=== PATIENT | female | born 1960 | race Hispanic/Latino ===

== ENCOUNTER 2017-03-24 15:25 | Emergency (ER) | payer MEDICAID, OTHER ==
[2017-03-24 15:25] VITALS: BMI 36.2
[2017-03-24 15:44] VITALS: TEMP 98.5
[2017-03-24] MEDS ORDERED: Sodium Chloride 0.9% 1,000 ML IV STA (15:55)
--- NOTE | 2017-03-24 16:04 | ED PDOC ---
Arrival/HPI - General Chief Complaint: GI Problem Time Seen by Provider: 03/24/17 15:45 Historian: Patient - History of Present Illness Narrative History of Present Illness (Text): 03/24/17 15:58 57yo morbidly obese female with PMHx of hypertension who present with complaint of multiple episode of vomiting and diarrhea x 3days. +Abdominal soreness. States she saw her PMD on and placed her on Flagyl. States she is unable to keep anything down. States she started having generalized crampy body pain today. spoke with her PMD and was referred to ED for possible dehydration. Denies fever, chills, melena, hematochezia, chest pain, SOB, recent travel, sick contact, any other complaint. Past Medical History - Provider Review Nursing Documentation Reviewed: Yes - Infectious Disease Hx of Infectious Diseases: None - Cardiac Hx Hypertension: Yes - Pulmonary Hx Pneumonia: Yes - Neurological Hx Migraine: Yes Hx Transient Ischemic Attacks (TIA): Yes - HEENT Hx HEENT Disorder: Yes Hx Blind: No Hx Cataracts: No Hx Deafness: No Hx Difficulty Chewing: No Hx Epistaxis: No Hx Glaucoma: No Hx Macular Degeneration: No Other/Comment: Wear glasses - Renal Hx Renal Disorder: No Hx Dialysis: No Hx Kidney Stones: No Hx Neurogenic Bladder: No Hx Pyelonephritis: No Hx Renal Cancer: No Hx Renal Failure: No - Endocrine/Metabolic Hx Endocrine Disorders: No Hx Adrenal Cancer: No Hx Diabetes Insipidus: No Hx Diabetes Mellitus Type 1: No Hx Diabetes Mellitus Type 2: No Hx Hyperthyroidism: No Hx Hypothyroidism: No Hx Systemic Lupus Erythematosus: No - Hematological/Oncological Hx Blood Disorders: No Hx AIDS: No Hx Anemia: No Hx Cancer: No Hx Chemotherapy: No Hx Cirrhosis: No Hx Hemophilia: No Hx Hepatitis A: No Hx Hepatitis B: No Hx Hepatitis C: No Hx Metastasis: No Hx Shingles: No Hx Sickle Cell Disease: No Hx Unexplained Bleeding: No - Integumentary Hx Dermatological Disorder: Yes Hx Basal Cell Carcinoma: No Hx Eczema: No Hx Melanoma: No Hx Psoriasis: No Hx Squamous Cell Carcinoma: No Other/Comment: Loss of pigmentation - Musculoskeletal/Rheumatological Hx Arthritis: Yes - Gastrointestinal Hx Gastrointestinal Disorders: Yes Hx Colostomy: No Hx Crohn's Disease: No Hx Diverticulitis: No Hx Gall Bladder Disease: No Hx Gastroesophageal Reflux: Yes Hx Gastrointestinal Ulcer: No Hx Ileostomy: No Hx Liver Failure: No Hx Pancreatitis: No HX Swallowing Problems: No - Genitourinary/Gynecological Hx Genitourinary Disorders: No Hx Hematuria: No Hx Incontinence: No Hx Prostate Problems: No Hx Sexually Transmitted Diseases: No Hx Urinary Tract Infection: Yes - Psychiatric Hx Anxiety: Yes Hx Substance Use: No - Surgical History Hx Appendectomy: Yes Hx Cholecystectomy: Yes - Anesthesia Hx Anesthesia: Yes - Suicidal Assessment Feels Threatened In Home Enviroment: No Family/Social History - Physician Review Nursing Documentation Reviewed: Yes Family/Social History: Unknown Family HX Smoking Status: Heavy Smoker > 10 Cigarettes Daily Hx Alcohol Use: No Hx Substance Use: No Allergies/Home Meds Allergies/Adverse Reactions: Allergies codeine Allergy (Intermediate, Verified 03/24/17 15:31) DIARRHEA SWEATS Penicillins Allergy (Mild, Verified 03/24/17 15:31) VOMITING DIARRHEA Home Medications: Home Meds Medication Instructions Recorded Confirmed Aspirin [Aspir 81] 81 mg PO DAILY 03/17/13 03/24/17 Metoprolol Tartrate 25 mg PO BID 11/16/15 03/24/17 Mirtazapine 15 mg PO DAILY 11/16/15 07/22/16 Lisinopril/Hydrochlorothiazide 1 tab PO DAILY 07/22/16 03/24/17 [Lisinopril-Hydrochlorothiazide 25 mg-20 mg] Ranitidine HCl 300 mg PO DAILY 07/22/16 03/24/17 Clorazepate Dipotassium [Tranxene 7.5 mg PO PRN PRN 03/24/17 03/24/17 T-Tab] Methimazole [Tapazole] 5 mg PO DAILY 03/24/17 03/24/17 Montelukast Sodium [Singulair] 5 mg PO HS 03/24/17 03/24/17 metroNIDAZOLE [Flagyl] 500 mg PO TID 03/24/17 03/24/17 Review of Systems - Physician Review All systems were reviewed & negative as marked: Yes - Review of Systems Constitutional: Normal Eyes: Normal ENT: Normal Respiratory: Normal Cardiovascular: Normal Gastrointestinal: Abdominal Pain, Diarrhea, Nausea, Vomiting, Hematemesis. absent: Constipation, Hematochezia Genitourinary Female: Normal Musculoskeletal: Normal Skin: Normal Neurological: Normal Endocrine: Normal Hemo/Lymphatic: Normal Psychiatric: Normal Physical Exam Vital Signs Reviewed: Yes Vital Signs Temp Pulse Resp BP Pulse Ox 03/24/17 17:37 76 18 93/59 L 98 03/24/17 15:41 98.5 F 80 16 90/62 L 95 Temperature: Afebrile Blood Pressure: Normal Pulse: Regular Respiratory Rate: Normal Appearance: Positive for: Well-Appearing, Non-Toxic, Comfortable Pain Distress: None Mental Status: Positive for: Alert and Oriented X 3 - Systems Exam Head: Present: Atraumatic, Normocephalic Pupils: Present: PERRL Extroacular Muscles: Present: EOMI Conjunctiva: Present: Normal Mouth: Present: Moist Mucous Membranes Neck: Present: Normal Range of Motion Respiratory/Chest: Present: Clear to Auscultation, Good Air Exchange. No: Respiratory Distress, Accessory Muscle Use Cardiovascular: Present: Regular Rate and Rhythm, Normal S1, S2. No: Murmurs Abdomen: Present: Normal Bowel Sounds, Other (Soft). No: Tenderness, Distention , Peritoneal Signs, Rebound, Guarding, McBurney's Point Tender, Rovsing's Sign Present Back: Present: Normal Inspection Upper Extremity: Present: Normal Inspection. No: Cyanosis, Edema Lower Extremity: Present: Normal Inspection. No: Edema Neurological: Present: GCS=15, CN II-XII Intact, Speech Normal Skin: Present: Warm, Dry, Normal Color. No: Rashes Psychiatric: Present: Alert, Oriented x 3, Normal Insight, Normal Concentration Medical Decision Making ED Course and Treatment: 03/24/17 17:43 PT presented to ED for stated history. Her BP was 93/59 in ED. On further questioning, pt states her BP has been low the last 2 visit to her PMD last month and this month. states She was recently told to DC one of her BP medication secondary to her reduced BP. States she took her BP medication today. She doesn't check her BP at home. she was advised to check her BP every morning before taking her medication. She was otherwise hemodynmaically stable. Comfortable in no distress in ED. Her lab was reviewed. Pt have UTI and was treated and DC home with Cipro. Result was DW the pt. she was advised to follow BLAND diet and increase her fluid intake. She did not have diarrhea and vomiting in ED. She was able to tolerate PO fluid in ED. She was DC with antiemetic. Referred to her PMD. TRT ED for any new or worsening symptoms. - Lab Interpretations Lab Results: 03/24/17 16:45 03/24/17 16:45 Lab Results 03/24/17 16:45: Sodium 140, Potassium 4.1, Chloride 103, Carbon Dioxide 26, Anion Gap 15, BUN 19, Creatinine 1.0, Est GFR ( Amer) > 60, Est GFR (Non- Af Amer) 58, Random Glucose 86, Calcium 10.3, Total Bilirubin 0.4, AST 22, ALT 25, Alkaline Phosphatase 106, Total Protein 8.1, Albumin 4.6, Globulin 3.5, Albumin/Globulin Ratio 1.3, Lipase 69 03/24/17 16:45: WBC 10.5 D, RBC 4.69, Hgb 14.0, Hct 41.0, MCV 87.4, MCH 29.9, MCHC 34.1, RDW 15.1 H, Plt Count 289, MPV 10.7, Gran % 53.8, Lymph % (Auto) 36.0 H, [place] % (Auto) 8.3 H, Eos % (Auto) 1.3 L, Baso % (Auto) 0.6, Gran # 5.63 , Lymph # 3.8 H, [place] # 0.9 H, Eos # 0.1, Baso # 0.06 03/24/17 16:00: Urine Color Yellow, Urine Appearance Clear, Urine pH 5.5, Ur Specific [place] >= 1.030, Urine Protein Trace H, Urine Glucose (UA) Negative, Urine Ketones Trace H, Urine Blood Negative, Urine Nitrate Negative, Urine Bilirubin Negative, Urine Urobilinogen 0.2, Ur Leukocyte Esterase Moderate H, Urine RBC 0 - 2, Urine WBC 15 - 20, Ur Epithelial Cells 6 - 8, Amorphous Sediment Few, Urine Bacteria Many, Urine Other Uyeast - Medication Orders Current Medication Orders: Discontinued Medications Ciprofloxacin (Cipro) 500 mg PO ONCE STA PRN Reason: Protocol Stop: 03/24/17 17:02 Last Admin: 03/24/17 17:29 Dose: 500 mg Famotidine (Pepcid) 20 mg IVP STAT STA Stop: 03/24/17 15:56 Last Admin: 03/24/17 16:46 Dose: 20 mg Sodium Chloride (Sodium Chloride 0.9%) 1,000 mls @ 1,000 mls/hr IV .Q1H STA Stop: 03/24/17 16:54 Last Admin: 03/24/17 16:45 Dose: 1,000 mls/hr Ondansetron HCl (Zofran Inj) 4 mg IVP STAT STA Stop: 03/24/17 16:05 Last Admin: 03/24/17 16:46 Dose: 4 mg Disposition/Present on Arrival - Present on Arrival Any Indicators Present on Arrival: No History of DVT/PE: No History of Uncontrolled Diabetes: No Urinary Catheter: No History of Decub. Ulcer: No History Surgical Site Infection Following: None - Disposition Have Diagnosis and Disposition been Completed?: Yes Diagnosis: UTI (urinary tract infection), Vomiting and diarrhea Disposition: HOME/ ROUTINE Disposition Time: 17:30 Patient Plan: Discharge Patient Problems: Current Active Problems Problem Status Onset UTI (urinary tract infection) Acute Vomiting and diarrhea Acute Condition: STABLE Discharge Instructions (ExitCare): Urinary Tract Infection in Women (ED), Acute Nausea and Vomiting (ED) Additional Instructions: Follow BLAND diet for 24hrs Follow up with your Doctor Return to ED for any new or worsening symptoms Prescriptions: Ciprofloxacin [Cipro] 500 mg PO BID #14 tab Ondansetron ODT [Zofran ODT] 4 mg PO Q6 #7 odt Referrals: Shailesh Lozada MD [Primary Care Provider] - Follow up with primary
[2017-03-24 16:41] LABS: PH,URINE 5.5 (4.7-8.0); URINE BILIRUBIN NEGATIVE (NEGATIVE); URINE BLOOD NEGATIVE (NEGATIVE); URINE GLUCOSE (UA) NEGATIVE (NEGATIVE); URINE KETONE TRACE mg/dL (NEGATIVE); URINE LEUKOCYTE ESTERASE MODERATE Leu/uL (NEGATIVE); URINE PROTEIN TRACE mg/dL (<30 mg/dL); URINE UROBILINOGEN 0.2 E.U./dL (<1 E.U./dL)
[2017-03-24 16:46] LABS: URINE APPEARANCE CLEAR (CLEAR); URINE COLOR YELLOW (YELLOW)
[2017-03-24 16:54] LABS: ADD MANUAL DIFF? NO
[2017-03-24 16:57] LABS: BASO # 0.06 K/mm3 (0.0-2.0); BASO % 0.6 % (0.0-3.0); EOS # 0.1 (0.0-0.7); EOS % 1.3 % (1.5-5.0); GRAN # 5.63 (1.4-6.5); GRAN % 53.8 % (50.0-68.0); LYMPH # 3.8 (1.2-3.4); MEAN CELL VOLUME 87.4 fL (80.0-105.0); MEAN CORPUSCULAR HEMOGLOBIN 29.9 pg (25.0-35.0); MEAN CORPUSCULAR HGB CONC 34.1 g/dl (31.0-37.0); MEAN PLATELET VOLUME 10.7 fl (7.0-11.0); MONO # 0.9 (0.1-0.6); MONO % 8.3 % (1.0-6.0); PLATELET COUNT 289 10^3/uL (120.0-450.0); RED CELL DISTRIBUTION WIDTH 15.1 % (11.5-14.5); WHITE BLOOD COUNT 10.5 10^3/ul (4.5-11.0)
[2017-03-24 16:59] LABS: URINE AMORPHOUS SEDIMENT FEW; URINE BACTERIA MANY (NEG); URINE RBC 0 - 2 /hpf (0-2); URINE WBC 15 - 20 /hpf (0-6)
[2017-03-24 17:08] LABS: ALB/GLOB RATIO 1.3 (1.1-1.8); ALKALINE PHOSPHATASE 106 U/L (38-133); ALT/SGPT 25 U/L (7-56); AST/SGOT 22 U/L (15-39); BILIRUBIN,TOTAL 0.4 mg/dL (0.2-1.3); BLOOD UREA NITROGEN 19 mg/dL (7-21); CALCIUM 10.3 mg/dL (8.4-10.5); CARBON DIOXIDE 26 mmol/L (21-33); CHLORIDE 103 mmol/L (98-107); GFR AFRICAN-AMERICAN > 60; GLUCOSE,RANDOM 86 mg/dL (70-110); LIPASE 69 U/L (23-300); POTASSIUM 4.1 mmol/L (3.6-5.0); SODIUM 140 mmol/L (132-148); TOTAL PROTEIN 8.1 g/dL (5.8-8.3)
[2017-03-24 17:10] LABS: INR 1.04 (0.93-1.08); PARTIAL THROMBOPLASTIN TIME 31.5 Seconds (23.7-30.8)
[2017-03-24 17:37] VITALS: BP 93/59; PULSE 76; RESP 18; O2SAT 98
== END 2017-03-24 17:58 | disposition home or self-care (01) ==
LOC: ED 15:25
DX: N39.0 Urinary tract infection, site not specified (principal); R11.10 Vomiting, unspecified; R19.7 Diarrhea, unspecified
CPT/HCPCS: 80053; 81001; 83690; 85025; 85610; 85730; 87086; 96361; 96374; 96375; 99283; J2405; J7040

== ENCOUNTER 2017-06-07 18:28 | Observation (INO) | payer MEDICAID ==
[2017-06-07 18:32] VITALS: BMI 35.9
--- NOTE | 2017-06-07 18:36 | ED PDOC ---
Arrival/HPI - General Time Seen by Provider: 06/07/17 18:29 Historian: Patient - History of Present Illness Narrative History of Present Illness (Text): 06/07/17 18:41 A 57 year old female whose past medical history includes, hypertension, presents to the emergency department with 1 hour duration chest pain and subjective dyspnea. The patient denies fevers, chills, nausea, vomiting, diarrhea, dizziness, abdominal pain or any other complaint. Time/Duration: 1 hour Symptom Onset: Sudden Symptom Course: Unchanged Activities at Onset: Rest, Light Context: Home Past Medical History - Provider Review Nursing Documentation Reviewed: Yes - Infectious Disease Hx of Infectious Diseases: None - Cardiac Hx Hypertension: Yes - Pulmonary Hx Pneumonia: Yes - Neurological Hx Migraine: Yes Hx Transient Ischemic Attacks (TIA): Yes - HEENT Hx HEENT Disorder: Yes Hx Blind: No Hx Cataracts: No Hx Deafness: No Hx Difficulty Chewing: No Hx Epistaxis: No Hx Glaucoma: No Hx Macular Degeneration: No Other/Comment: Wear glasses - Renal Hx Renal Disorder: No Hx Dialysis: No Hx Kidney Stones: No Hx Neurogenic Bladder: No Hx Pyelonephritis: No Hx Renal Cancer: No Hx Renal Failure: No - Endocrine/Metabolic Hx Endocrine Disorders: No Hx Adrenal Cancer: No Hx Diabetes Insipidus: No Hx Diabetes Mellitus Type 1: No Hx Diabetes Mellitus Type 2: No Hx Hyperthyroidism: No Hx Hypothyroidism: No Hx Systemic Lupus Erythematosus: No - Hematological/Oncological Hx Blood Disorders: No Hx AIDS: No Hx Anemia: No Hx Cancer: No Hx Chemotherapy: No Hx Cirrhosis: No Hx Hemophilia: No Hx Hepatitis A: No Hx Hepatitis B: No Hx Hepatitis C: No Hx Metastasis: No Hx Shingles: No Hx Sickle Cell Disease: No Hx Unexplained Bleeding: No - Integumentary Hx Dermatological Disorder: Yes Hx Basal Cell Carcinoma: No Hx Eczema: No Hx Melanoma: No Hx Psoriasis: No Hx Squamous Cell Carcinoma: No Other/Comment: Loss of pigmentation - Musculoskeletal/Rheumatological Hx Arthritis: Yes - Gastrointestinal Hx Gastrointestinal Disorders: Yes Hx Colostomy: No Hx Crohn's Disease: No Hx Diverticulitis: No Hx Gall Bladder Disease: No Hx Gastroesophageal Reflux: Yes Hx Gastrointestinal Ulcer: No Hx Ileostomy: No Hx Liver Failure: No Hx Pancreatitis: No HX Swallowing Problems: No - Genitourinary/Gynecological Hx Genitourinary Disorders: No Hx Hematuria: No Hx Incontinence: No Hx Prostate Problems: No Hx Sexually Transmitted Diseases: No Hx Urinary Tract Infection: Yes - Psychiatric Hx Anxiety: Yes Hx Substance Use: No - Surgical History Hx Appendectomy: Yes Hx Cholecystectomy: Yes - Anesthesia Hx Anesthesia: Yes - Suicidal Assessment Feels Threatened In Home Enviroment: No Family/Social History - Physician Review Nursing Documentation Reviewed: Yes Family/Social History: No Known Family HX Smoking Status: Heavy Smoker > 10 Cigarettes Daily Hx Alcohol Use: No Hx Substance Use: No Allergies/Home Meds Allergies/Adverse Reactions: Allergies codeine Allergy (Intermediate, Verified 06/07/17 18:38) DIARRHEA SWEATS Penicillins Allergy (Mild, Verified 06/07/17 18:38) VOMITING DIARRHEA Home Medications: Home Meds Medication Instructions Recorded Confirmed Aspirin [Aspir 81] 81 mg PO DAILY 03/17/13 06/07/17 Metoprolol Tartrate 25 mg PO BID 11/16/15 06/07/17 Mirtazapine 15 mg PO DAILY 11/16/15 06/07/17 Lisinopril/Hydrochlorothiazide 1 tab PO DAILY 07/22/16 06/07/17 [Lisinopril-Hydrochlorothiazide 25 mg-20 mg] Ranitidine HCl 300 mg PO DAILY 07/22/16 06/07/17 Clorazepate Dipotassium [Tranxene 7.5 mg PO PRN PRN 03/24/17 06/07/17 T-Tab] Methimazole [Tapazole] 5 mg PO DAILY 03/24/17 06/07/17 Montelukast Sodium [Singulair] 5 mg PO HS 03/24/17 06/07/17 Review of Systems - Physician Review All systems were reviewed & negative as marked: Yes - Review of Systems Constitutional: absent: Fevers, Night Sweats Respiratory: SOB Cardiovascular: Chest Pain Gastrointestinal: absent: Abdominal Pain, Diarrhea, Nausea, Vomiting Neurological: absent: Headache, Dizziness Physical Exam Vital Signs Reviewed: Yes Vital Signs Temp Pulse Resp BP Pulse Ox 06/07/17 22:05 83 19 125/71 95 06/07/17 18:36 97.7 F 95 H 20 146/80 97 Temperature: Afebrile Blood Pressure: Normal Pulse: Tachycardic Respiratory Rate: Normal Appearance: Positive for: Well-Appearing, Non-Toxic, Comfortable, Other ( Morbidly Obese) Pain Distress: None - Systems Exam Head: Present: Atraumatic, Normocephalic Pupils: Present: PERRL Extroacular Muscles: Present: EOMI Conjunctiva: Present: Normal Mouth: Present: Moist Mucous Membranes Neck: Present: Normal Range of Motion Respiratory/Chest: Present: Clear to Auscultation, Good Air Exchange. No: Respiratory Distress, Accessory Muscle Use Cardiovascular: Present: Regular Rate and Rhythm, Normal S1, S2. No: Murmurs Abdomen: Present: Normal Bowel Sounds. No: Tenderness, Distention, Peritoneal Signs Back: Present: Normal Inspection Upper Extremity: Present: Normal Inspection. No: Cyanosis, Edema Lower Extremity: Present: Normal Inspection. No: Edema Neurological: Present: GCS=15, CN II-XII Intact, Speech Normal Skin: Present: Warm, Dry, Normal Color. No: Rashes Psychiatric: Present: Alert, Oriented x 3, Normal Insight, Normal Concentration Medical Decision Making ED Course and Treatment: 06/07/17 18:53 Impression: A 57 year old female with 1 hour duration chest pain. Differential Diagnosis included but are not limited to: cp r/o acs Plan: -- EKG -- Chest X-ray -- Labs -- Aspirin and Nitrostat -- Urinalysis -- Reassess and disposition Progress Notes: 06/07/17 18:35 EKG: Ordered, reviewed, and independently interpreted the EKG. Rate : 95 BPM Rhythm : NSR Interpretation : No ST/ T-wave changes. 06/07/17 21:04 EKG: Ordered, reviewed, and independently interpreted the EKG. Rate : 82 BPM Rhythm : NSR Interpretation : No interval changes. 06/07/17 23:01 pt started c/o of pain to back. dissection study added. neg. pain imrpoved s/p morphine. serial ekg show no dyamic change. asa given. dr villa accepts - Lab Interpretations Lab Results: 06/07/17 18:34 06/07/17 19:45 Lab Results 06/07/17 19:45: Lipase 112 06/07/17 19:45: Sodium 138, Potassium 3.5 L, Chloride 101, Carbon Dioxide 23, Anion Gap 18, BUN 16, Creatinine 0.7, Est GFR ( Amer) > 60, Est GFR (Non- Af Amer) > 60, Random Glucose 115 H, Calcium 10.2, Magnesium 1.5 L, Total Bilirubin 0.5, AST 24, ALT 19, Alkaline Phosphatase 125, Lactate Dehydrogenase 373, Total Creatine Kinase 41, Troponin I < 0.01, Total Protein 8.5 H, Albumin 5.0 H, Globulin 3.5, Albumin/Globulin Ratio 1.4 06/07/17 19:41: Urine Color Yellow, Urine Appearance Clear, Urine pH 5.5, Ur Specific [place] >= 1.030, Urine Protein Negative, Urine Glucose (UA) Negative, Urine Ketones Negative, Urine Blood Negative, Urine Nitrate Negative, Urine Bilirubin Negative, Urine Urobilinogen 0.2, Ur Leukocyte Esterase Small H, Urine RBC 0 - 2, Urine WBC 2 - 5, Ur Epithelial Cells 3 - 4, Urine Bacteria Mod 06/07/17 18:34: ESR 18 06/07/17 18:34: PT 11.0, INR 1.02, APTT 31.5 H 06/07/17 18:34: WBC 16.7 H D, RBC 5.29, Hgb 16.0, Hct 46.6, MCV 88.1, MCH 30.2, MCHC 34.3, RDW 13.5, Plt Count 303, MPV 11.2 H, Gran % 50.0, Lymph % (Auto) 41.7 H, [place] % (Auto) 6.2 H, Eos % (Auto) 1.9, Baso % (Auto) 0.2, Gran # 8.36 H , Lymph # 7.0 H, [place] # 1.0 H, Eos # 0.3, Baso # 0.04 I have reviewed the lab results: Yes - RAD Interpretation Radiology Orders: 06/07/17 18:38 CHEST PORTABLE [RAD] Stat 06/07/17 20:47 ANGIOGRAPHY DISECTION PROTOCOL [CT] Stat - EKG Interpretation Interpreted by ED Physician: Yes Type: 12 lead EKG - Medication Orders Current Medication Orders: Aspirin (Ecotrin) 81 mg PO DAILY [facility] Magnesium Chloride (Slow-Mag) 64 mg PO DAILY [facility] Last Admin: 06/08/17 09:15 Dose: 64 mg Methimazole (Tapazole) 5 mg PO DAILY [facility] Last Admin: 06/08/17 09:16 Dose: 5 mg Metoprolol Tartrate (Lopressor) 25 mg PO BID [facility] Last Admin: 06/08/17 17:47 Dose: 25 mg Oxycodone/Acetaminophen (Percocet 5/325 Mg Tab) 1 tab PO Q4 PRN PRN Reason: Pain, severe (8-10) Stop: 06/11/17 00:01 Last Admin: 06/08/17 20:32 Dose: 1 tab Potassium Chloride (K-Dur 20 Meq Er Tab) 20 meq PO DAILY [facility] Last Admin: 06/08/17 12:14 Dose: 20 meq Comments: given earlier at 1:11 Discontinued Medications Aspirin (Aspirin) 325 mg PO STAT STA Stop: 06/07/17 18:40 Last Admin: 06/07/17 18:48 Dose: 325 mg Aspirin (Ecotrin) 325 mg PO DAILY [facility] Last Admin: 06/08/17 09:15 Dose: 325 mg Bacitracin (Bacitracin) 1 ea TOP ONCE ONE Stop: 06/08/17 16:46 Last Admin: 06/08/17 19:09 Dose: 1 ea Clopidogrel Bisulfate (Plavix) 300 mg PO STAT STA Stop: 06/08/17 08:49 Last Admin: 06/08/17 09:15 Dose: 300 mg Clopidogrel Bisulfate (Plavix) 300 mg PO STAT STA Stop: 06/08/17 11:49 Last Admin: 06/08/17 12:16 Dose: 300 mg Fentanyl (Fentanyl) Confirm Administered Dose 100 mcg .ROUTE .STK-MED ONE Stop: 06/08/17 14:42 Last Admin: 06/08/17 16:08 Dose: 100 mcg Comments: Dr. Arturo Wright adm. Fentanyl 50 mcg IV @ 1608, an additional dose of Fentanyl 50 mcg IV was given @ 1618. Fentanyl (Fentanyl) Confirm Administered Dose 100 mcg .ROUTE .STK-MED ONE Stop: 06/08/17 15:57 Last Admin: 06/08/17 16:30 Dose: 50 mcg Heparin Sodium (Porcine) (Heparin) Confirm Administered Dose 10,000 units .ROUTE .STK-MED ONE Stop: 06/08/17 14:41 Last Admin: 06/08/17 16:21 Dose: 2,500 units Comments: Dr. Arturo Wright adm. Heparin 2500 Units IA @ 1621 Magnesium Sulfate 2 gm/ Sodium (Chloride) 104 mls @ 102 mls/hr IVPB ONCE ONE Stop: 06/08/17 12:48 Last Admin: 06/08/17 13:09 Dose: 102 mls/hr Sodium Chloride (Sodium Chloride 0.9%) 1,000 mls @ 50 mls/hr IV .Q20H [facility] Last Admin: 06/08/17 12:17 Dose: 50 mls/hr Heparin Sodium (Porcine) (Heparin 1000 Units/500 Ml Ns) Confirm Administered Dose 1,500 mls @ ud IV .STK-MED ONE Stop: 06/08/17 14:42 Last Admin: 06/08/17 17:29 Dose: Not Given Non-Admin Reason: Patient in Cardiology Sodium Chloride (Sodium Chloride 0.9%) 1,000 mls @ 100 mls/hr IV .Q10H [facility] Stop: 06/08/17 21:30 Last Admin: 06/08/17 17:14 Dose: 100 mls/hr Iodixanol (Visipaque 320 Mg/Ml 100 Ml) Confirm Administered Dose 100 ml IV .STK- MED ONE Stop: 06/07/17 20:53 Iodixanol (Visipaque 320 Mg/Ml 200 Ml) Confirm Administered Dose 200 ml IV .STK- MED ONE Stop: 06/08/17 14:42 Last Admin: 06/08/17 17:30 Dose: Not Given Non-Admin Reason: Patient in Cardiology Lidocaine HCl (Lidocaine 2% 20ml Vial) Confirm Administered Dose 20 ml .ROUTE .STK-MED ONE Stop: 06/08/17 16:07 Last Admin: 06/08/17 17:29 Dose: Not Given Non-Admin Reason: Patient in Cardiology Midazolam HCl (Versed Inj) Confirm Administered Dose 2 mg .ROUTE .STK-MED ONE Stop: 06/08/17 14:41 Last Admin: 06/08/17 16:08 Dose: 2 mg Comments: Dr. Arturo Wright adm. Versed 2 mg IV @ 1608 Midazolam HCl (Versed Inj) Confirm Administered Dose 2 mg .ROUTE .STK-MED ONE Stop: 06/08/17 16:15 Last Admin: 06/08/17 16:30 Dose: 1 mg Morphine Sulfate (Morphine) 4 mg IVP STAT STA Stop: 06/07/17 19:27 Last Admin: 06/07/17 19:40 Dose: 4 mg Morphine Sulfate (Morphine) 4 mg IVP STAT STA Stop: 06/07/17 20:51 Last Admin: 06/07/17 21:06 Dose: 4 mg Morphine Sulfate (Morphine) 2 mg IVP STAT STA Stop: 06/08/17 11:46 Last Admin: 06/08/17 12:08 Dose: 2 mg Nitroglycerin (Nitrostat Sl Tab) 0.4 mg SL STAT STA Stop: 06/07/17 18:40 Last Admin: 06/07/17 18:49 Dose: 0.4 mg Ondansetron HCl (Zofran Inj) 4 mg IVP STAT STA Stop: 06/07/17 19:51 Last Admin: 06/07/17 20:37 Dose: 4 mg Verapamil HCl (Verapamil Inj) Confirm Administered Dose 5 mg IVP .STK-MED ONE Stop: 06/08/17 14:41 Last Admin: 06/08/17 16:21 Dose: 2.5 mg Comments: Dr. Arturo Wright adm. Verapamil 2.5 mg IA @ 1621 - Scribe Statement The provider has reviewed the documentation as recorded by the Scribe Martha Ayala Provider Scribe Attestation: All medical record entries made by the Scribe were at my direction and personally dictated by me. I have reviewed the chart and agree that the record accurately reflects my personal performance of the history, physical exam, medical decision making, and the department course for this patient. I have also personally directed, reviewed, and agree with the discharge instructions and disposition. Disposition/Present on Arrival - Present on Arrival Any Indicators Present on Arrival: No History of DVT/PE: No History of Uncontrolled Diabetes: No Urinary Catheter: No History Surgical Site Infection Following: None - Disposition Have Diagnosis and Disposition been Completed?: Yes Diagnosis: Chest pain Disposition: HOSPITALIZED Disposition Time: 11:00 Condition: STABLE
[2017-06-07 19:09] LABS: BASO # 0.04 K/mm3 (0.0-2.0); BASO % 0.2 % (0.0-3.0); EOS # 0.3 (0.0-0.7); EOS % 1.9 % (1.5-5.0); GRAN # 8.36 (1.4-6.5); LYMPH % 41.7 % (22.0-35.0); MEAN CELL VOLUME 88.1 fl (80.0-105.0); MEAN CORPUSCULAR HEMOGLOBIN 30.2 pg (25.0-35.0); MEAN CORPUSCULAR HGB CONC 34.3 g/dl (31.0-37.0); MEAN PLATELET VOLUME 11.2 fl (7.0-11.0); MONO % 6.2 % (1.0-6.0); PLATELET COUNT 303 10^3/uL (120.0-450.0); RBC 5.29 10^6/uL (3.5-6.1); RED CELL DISTRIBUTION WIDTH 13.5 % (11.5-14.5); WHITE BLOOD COUNT 16.7 10^3/ul (4.5-11.0)
[2017-06-07] MEDS ORDERED: Morphine 4 mg/ml ISec IVP STA ×2 (19:26→20:50)
[2017-06-07 19:33] LABS: INR 1.02 (0.93-1.08); PARTIAL THROMBOPLASTIN TIME 31.5 Seconds (23.7-30.8)
[2017-06-07 20:12] LABS: PH,URINE 5.5 (4.7-8.0); URINE BILIRUBIN NEGATIVE (NEGATIVE); URINE BLOOD NEGATIVE (NEGATIVE); URINE GLUCOSE (UA) NEGATIVE (NEGATIVE); URINE LEUKOCYTE ESTERASE SMALL Leu/uL (NEGATIVE); URINE NITRATE NEGATIVE (NEGATIVE); URINE PROTEIN NEGATIVE mg/dL (<30 mg/dL); URINE UROBILINOGEN 0.2 E.U./dL (<1 E.U./dL)
[2017-06-07 20:18] LABS: URINE APPEARANCE CLEAR (CLEAR); URINE COLOR YELLOW (YELLOW)
[2017-06-07 20:24] LABS: ALB/GLOB RATIO 1.4 (1.1-1.8); ALT/SGPT 19 U/L (7-56); AST/SGOT 24 U/L (15-39); BLOOD UREA NITROGEN 16 mg/dL (7-21); CALCIUM 10.2 mg/dL (8.4-10.5); GFR AFRICAN-AMERICAN > 60; GFR NON-AFRICAN AMERICAN > 60; MAGNESIUM 1.5 mg/dL (1.7-2.2)
[2017-06-07 20:37] LABS: URINE BACTERIA MOD (NEG); URINE RBC 0 - 2 /hpf (0-2)
[2017-06-07 20:40] LABS: TROPONIN I < 0.01 ng/mL
[2017-06-07] MEDS ORDERED: Iodixanol 320 MG/ML 100 ML BOTTLE IV ONE (20:52)
--- NOTE | 2017-06-07 22:34 | CT ---
EXAM: CT Chest With Intravenous Contrast CLINICAL HISTORY: 57 years old, female; Pain; Other: Chest; Chest pain; Type not specified; Additional info: Cp radiating to back TECHNIQUE: Axial computed tomography images of the chest with intravenous contrast during the arterial phase of enhancement. All CT scans at this facility use one or more dose reduction techniques, viz.: automated exposure control; ma/kV adjustment per patient size (including targeted exams where dose is matched to indication; i.e. head); or iterative reconstruction technique. CONTRAST: 100 mL of VISIPAQUE 320 administered intravenously. COMPARISON: No relevant prior studies available. FINDINGS: Pulmonary arteries: No pulmonary embolism. Aorta: No thoracic aortic aneurysm. No dissection. Aberrant right subclavian artery is identified, coursing obliquely and superiorly behind the trachea and esophagus. Lungs: No mass. No consolidation.Small bilateral pleural effusions, with adjacent compressive atelectasis, improved from 11/18/2015. Pleural spaces: As above. Heart: No cardiomegaly. No significant pericardial effusion. No evidence of right heart dysfunction. Bones: No acute fracture. Lymph nodes: No pathologically enlarged lymph nodes. Calcified subcentimeter left thyroid nodule. IMPRESSION: No pulmonary embolism. No dissection. EXAM: CT Abdomen and Pelvis With Intravenous Contrast CLINICAL HISTORY: 57 years old, female; Pain; Other: Chest; Chest pain; Type not specified; Additional info: Cp radiating to back TECHNIQUE: Axial computed tomography images of the abdomen and pelvis with intravenous contrast during the arterial phase of enhancement. All CT scans at this facility use one or more dose reduction techniques, viz.: automated exposure control; ma/kV adjustment per patient size (including targeted exams where dose is matched to indication; i.e. head); or iterative reconstruction technique. CONTRAST: 100 mL of VISIPAQUE 320 administered intravenously. COMPARISON: None FINDINGS: Lower thorax: No acute findings. VASCULATURE: Aorta: No acute findings. No abdominal aortic aneurysm. No dissection. Celiac trunk and mesenteric arteries: No acute findings. No occlusion or significant stenosis. Renal arteries: No acute findings. No occlusion or significant stenosis. Iliac arteries: No acute findings. No occlusion or significant stenosis. ABDOMEN: Liver: No acute findings. Gallbladder and bile ducts: The gallbladder is surgically absent. No significant intra- or extrahepatic biliary ductal dilation. Pancreas: Enhances homogeneously. No ductal dilation. No discrete mass. Spleen: No acute findings. Adrenals: No acute findings. Kidneys and ureters: No acute findings. No hydronephrosis or renal calculi. No discrete solid mass. PELVIS: Bladder: No acute findings. Reproductive: No acute findings. Appendix: The appendix is not definitively visualized, however no pericecal inflammatory changes identified to suggest the presence of acute appendicitis. ABDOMEN and PELVIS: Stomach and bowel: No obstruction. No mucosal thickening. Peritoneum: No significant fluid collection. No free air. Lymph nodes: No pathologically enlarged lymph nodes. Vasculature: Calcified atherosclerotic disease. Bones: No acute fracture. IMPRESSION: Unremarkable CT examination of the abdomen and pelvis. No aneurysmal dilatation or dissection is detected within the vasculature of the abdomen and pelvis.
[2017-06-08] MEDS: Oxycodone/Acetaminophen 5/325 mg Tab PO PRN ×3 (00:14→20:32)
[2017-06-08] MEDS: Potassium Chloride 20 mEq ER Tab PO SCH ×2 (01:11→12:14)
[2017-06-08 09:02] LABS: BASO # 0.05 K/mm3 (0.0-2.0); BASO % 0.4 % (0.0-3.0); EOS # 0.3 (0.0-0.7); EOS % 1.8 % (1.5-5.0); GRAN # 7.58 (1.4-6.5); GRAN % 54.7 % (50.0-68.0); LYMPH # 5.2 (1.2-3.4); LYMPH % 37.3 % (22.0-35.0); MEAN CELL VOLUME 88.1 fl (80.0-105.0); MEAN CORPUSCULAR HEMOGLOBIN 29.3 pg (25.0-35.0); MEAN CORPUSCULAR HGB CONC 33.3 g/dl (31.0-37.0); MONO # 0.8 (0.1-0.6); MONO % 5.8 % (1.0-6.0); PLATELET COUNT 249 10^3/uL (120.0-450.0); RBC 4.64 10^6/uL (3.5-6.1); RED CELL DISTRIBUTION WIDTH 13.5 % (11.5-14.5); WHITE BLOOD COUNT 13.9 10^3/ul (4.5-11.0)
[2017-06-08 09:07] LABS: HEMOGLOBIN 13.6 g/dL (12.0-16.0)
[2017-06-08] MEDS: methIMAzole 5 MG TAB PO SCH (09:16)
[2017-06-08 09:57] LABS: ALB/GLOB RATIO 1.5 (1.1-1.8); ALBUMIN 4.3 g/dL (3.0-4.8); ALT/SGPT 22 U/L (7-56); AST/SGOT 23 U/L (15-39); BLOOD UREA NITROGEN 16 mg/dL (7-21); CALCIUM 9.9 mg/dL (8.4-10.5); GFR AFRICAN-AMERICAN > 60; GFR NON-AFRICAN AMERICAN > 60; HDL CHOLESTEROL 42 mg/dL (29-60); MAGNESIUM 1.5 mg/dL (1.7-2.2)
[2017-06-08] MEDS ORDERED: Aspirin 325 mg EC Tablets PO SCH (10:00)
[2017-06-08] MEDS ORDERED: Magnesium Chloride 64 mg ER Tab PO SCH (10:00)
[2017-06-08 10:08] LABS: LDL CHOLESTEROL 195 mg/dL (0-129)
--- NOTE | 2017-06-08 10:16 | RAD ---
HISTORY: sob COMPARISON: 05/18/2016 FINDINGS: LUNGS: No active pulmonary disease. PLEURA: No significant pleural effusion identified, no pneumothorax apparent. CARDIOVASCULAR: Normal. OSSEOUS STRUCTURES: No significant abnormalities. VISUALIZED UPPER ABDOMEN: Normal. OTHER FINDINGS: None. IMPRESSION: No active disease.
[2017-06-08 10:55] LABS: TROPONIN I 1.11 ng/mL
[2017-06-08] MEDS ORDERED: Morphine 2 mg/ml ISec IVP STA (11:45)
[2017-06-08] MEDS ORDERED: Magnesium Sulfate 2 GM in Sodium Chloride 0.9% 100 ML IVPB ONE (11:47)
[2017-06-08] MEDS ORDERED: Sodium Chloride 0.9% 1,000 ML IV SCH ×2 (12:00→16:45)
[2017-06-08] MEDS ORDERED: Midazolam 2 MG/2 ML VIAL ONE ×2 (14:40→16:14)
[2017-06-08] MEDS ORDERED: Iodixanol 320 MG/ML 200 ML BOTTLE IV ONE (14:41)
[2017-06-08] MEDS ORDERED: Lidocaine 2% Inj (20ml) ONE (16:06)
[2017-06-08] MEDS ORDERED: Bacitracin 500 Units/gm Oint Foilpak UD TOP ONE (16:45)
--- NOTE | 2017-06-08 17:46 | CARD ---
APPROVED REPORT Procedure(s) performed: Left Heart Catheterization HISTORY The patient is a 57 year-old female with a history of : most recent EF: 65%. (EF Method: Echocardiogram), previous CVA , chronic lung disease, previous diagnostic cath, tobacco history() : The patient is a current smoker , hypertension , dyslipidemia , cerebrovascular disease , admitted with ACS, troponin 1.1, had a stress test one year ago and was normal also had cardiac cath 9 years ago in [facility] mild CAD, but cath complicated by TIA.. INDICATION The indication(s) include : non-STEMI , chest pain, dyspnea. CASE TECHNIQUE The patient was brought urgently to the Cardiac Catheterization Laboratory in a fasting state and was prepped and draped in a sterile manner. The left wrist was infiltrated with 2% Lidocaine subcutaneous anesthesia. A 6 Fr Glidesheath (Radial) sheath was inserted into the left radial artery without difficulty. Coronary angiography was performed using coronary diagnostic catheters. The left coronary system was accessed and visualized with a Diagnostic ,5 Fr JL 3.5 catheter. The right coronary system was accessed and visualized with a Diagnostic ,5 Fr JR 3.5 catheter. The left ventricle was accessed and visualized with a 5 Fr Pigtail 145 (Angled) catheter. Left ventricular/Aortic Valve gradient assessed on pullback. Left ventriculogram was performed in ARROYO projection. Closure device was deployed with a Fr TR band without any complications. The patient tolerated the procedure well and there were no complications associated with the procedure. Vessel Analysis The patient's coronary anatomy is co-dominant. The left main coronary artery is a large size vessel without significant stenosis. The left main bifurcates to the left anterior descending and circumflex. The left anterior descending artery is a large size vessel with diffuse calcification noted throughout this vessel and without significant stenosis. The first diagonal branch is a medium size vessel with diffuse calcification noted throughout this vessel and with significant stenosis. There is a 55% stenosis in the ostial segment. The circumflex artery is a large size vessel with diffuse calcification noted throughout this vessel and without significant stenosis. The first obtuse marginal branch is a small size vessel with diffuse calcification noted throughout this vessel and without significant stenosis. The left posterior descending artery is a medium size vessel with diffuse calcification noted throughout this vessel and without significant stenosis. The right coronary artery is a large size vessel with diffuse calcification noted throughout this vessel and without significant stenosis. There is a 30-40% stenosis in the mid segment. The right posterolateral branch is a medium size vessel with diffuse calcification noted throughout this vessel and without significant stenosis. Left Ventricle The left ventricle is normal in size with normal contractility. There was no cardiomyopathy. The left ventricular ejection fraction is estimated to be 55-60%. The left ventricular end diastolic pressure is 14-15 mmHg. There was no gradient across the aortic valve upon pullback. Conclusion Non Obstructive CAD, limited to D1 -55% ostial stenosis. Mild to moderate Diz in Mid RCA. Preserved Lv Fx. Ef-55-60%, EDP-14-15 mmof hg. Recommendations Smoking Cessation Aggressive Medical TherapyCardiac Risk Reduction Program Weight Loss Reduction Program CC; Dr. Lozada, T
--- NOTE | 2017-06-08 19:46 | CON ---
CONSULT SERVICE: Cardiology. DATE OF CONSULTATION: 06/07/2017 REASON FOR CONSULTATION: Followup acute coronary syndrome, chest pain, unstable angina. BRIEF CLINICAL HISTORY: This is a 57-year-old obese female, body mass index 36 kg/m2, hypertension, hyperlipidemia, hyperthyroidism, who came in with retrosternal chest pain radiating to both arms and severe tightness of the chest. She has a cough of 1 day. PAST MEDICAL HISTORY: Significant for hypertension, recently developed some cough. PREVIOUS CARDIAC WORKUP FOLLOWS: The patient had a cardiac catheterization 9 years ago at [facility] after an abnormal stress test, underwent cardiac catheterization, was found to be normal. Following that, the patient had TIA type of symptoms. The patient was admitted last year on 03/16/2016 and cath was offered, but the patient was scared and did not want to have the cardiac catheterization, so the patient opted for a stress test and the patient had a stress test later on 03/17/2016. There was a Lexiscan which showed normal myocardial perfusion study, no ischemia. The patient had echocardiography on 03/17/2016 that showed normal chamber size, ejection fraction of 60%-65%, trace MR, trace TR, trace PI, and trace AR. RV systolic pressure was 31. SOCIAL HISTORY: One pack a day, started at the age of teenage. Denies any history of alcohol abuse. FAMILY HISTORY: Unknown. The patient was adopted. CURRENT MEDICATIONS: Currently the patient is taking ranitidine 300 mg daily, Zofran, Singulair, mirtazapine, metoprolol, Tapazole 25 mg daily, Lisinopril 1 tablet daily, and aspirin. REVIEW OF SYSTEMS: As per HPI. PHYSICAL EXAMINATION: VITAL SIGNS: Temperature afebrile, heart rate 60, blood pressure 112/64. HEENT: PERRLA. Extraocular muscles intact. NECK: Supple. No carotid bruits. No thyromegaly. CHEST: Clear to auscultation. HEART: S1, S2, regular. ABDOMEN: Soft. EXTREMITIES: Clubbing, cyanosis negative. LABORATORY DATA: Blood workup as follows; WBC 16.7, hemoglobin 16, hematocrit 46.6, platelet count 303. Chemistry shows sodium 130, potassium 3.5, chloride 101, carbon dioxide 23, anion gap of 18, BUN 16, creatinine 0.7, troponin 0.01. IMAGING DATA: EKG; normal sinus, incomplete right bundle-branch block, rate of 98. IMPRESSION AND PLAN: Unstable angina, multiple risk factors of coronary artery disease including obesity, active tobacco abuse, diabetes, hypertension. Suggested the patient cardiac catheterization, but the patient was very much reluctant because she had bad experience 9 years ago at [facility]. So, a stress test was offered, but the patient said that she wants to have a definite diagnosis because she keeps on having chest pain. Mentioned the speciality and sensitivity of Lexiscan 85%, so eventually I had a lengthy discussion. The patient agreed for cardiac catheterization. Given the risk for a stroke and less than 1% chance of all complications including infection, damage to the arteries, stroke, and heart attack, the patient understands and agrees for cardiac catheterization. We will proceed for cardiac catheterization. We will cancel the stress test. We will give load with 300 Plavix, aspirin, keep n.p.o. after the breakfast. Thank you Dr. Lozada for providing us an opportunity in taking care of the patient. Karis Wright MD cc: Dr. Lozada
--- NOTE | 2017-06-08 23:31 | CARD ---
APPROVED REPORT EKG Measurement Heart [id number] [place] [id number] <Conclusion> Sinus bradycardia Low voltage QRS Borderline ECG
--- NOTE | 2017-06-08 23:44 | PN ---
DATE: 06/08/2017 REASON FOR DICTATION: The patient underwent cardiac catheterization that revealed non-obstructive coronary artery disease limited only to diagonal to ostial disease. Diagonal one has 55% stenosis otherwise major epicardialare ok disease, preserved LV function. RECOMMENDATION: Aggressive medical treatment recommendations comprising of complete cessation of smoking, weight reduction, modification, last time modified for coronary artery disease. Full cath report to follow. Karis Wright MD MTDNay
--- NOTE | 2017-06-08 23:50 | CARD ---
APPROVED REPORT EKG Measurement Heart [id number] [place] [id number] [id number] <Conclusion> Normal sinus rhythm Low voltage QRS Borderline ECG
--- NOTE | 2017-06-08 23:53 | CARD ---
APPROVED REPORT EKG Measurement Heart [id number] [place] [id number] <Conclusion> Normal sinus rhythm Incomplete right bundle branch block Borderline ECG
[2017-06-09 00:46] VITALS: RESP 20
[2017-06-09 00:47] VITALS: O2SAT 93
--- NOTE | 2017-06-09 01:55 | HP ---
CHIEF COMPLAINT: Chest pain. HISTORY OF PRESENT ILLNESS: This is a 57-year-old woman I had known for 3 years who presented to the emergency room with 1-hour of pressure like chest pain in the mid chest radiating up into the left shoulder. It was not brought on with exertion. There was no associated diaphoresis. but she reports classic angina, chest pain, tightness and squeezing and there is something pressing on her chest. She denied reflux, heartburn, nausea, indigestion, and therefore came to the emergency room. She is evaluated in the ER. Troponins were negative. She was admitted to the telemetry floor. Cardiology consultation with Dr. Wright, donor services specialist (a donor services specialist who knows her) was called. PAST MEDICAL HISTORY: Significant for hypertension since 2007, elevated cholesterol in the past. She had a TIA in 2007 with right arm focal weakness and leg weakness. She had cardiac catheterization several years ago which was recorded all within normal limits. She had her appendix removed as a teen and there is a history of renal colic in 1994 requiring cystoscopy and extraction of the stone. She also has anxiety and depression, which has worsened in the past. CURRENT MEDICATIONS: Include; lisinopril/HCTZ, clorazepate, aspirin 81 mg, ranitidine 300 mg daily, Singulair 5 mg at bedtime and metoprolol 25 mg b.i.d. ALLERGIES: SHE REPORTS THAT PENICILLIN GIVES HER DIARRHEA, PAXIL CAUSES TREMOR AND CODEINE GIVES HER NIGHT SWEATS. SOCIAL HISTORY: She smokes a pack of cigarettes a day. Does not drink alcohol. Drinks decaffeinated coffee. She has not had a colonoscopy. Last mammography was several years ago. She does not take or wants a flu shot or Pneumovax. Her mother is alive at 84 years old. She is #2 of #3 children adopted. She is , has sons, now age 29 and 26 years old. REVIEW OF SYSTEMS: Otherwise unremarkable. PHYSICAL EXAMINATION GENERAL: The patient is seen room 266, bed 2, this Sunday morning. She is awake, alert and appropriate in bed. No longer having chest pain. HEAD AND NECK: Unremarkable. Conjunctivae are pink. Mucous membranes are moist. SKIN: Showed some blanching on the cheek compatible with vitiligo. NECK: Supple without masses. There is no JVD. Thyroid was not palpable. No carotid bruits. HEART: Regular without murmurs. ABDOMEN: Soft, nontender LUNGS: Clear, right and left anteriorly and posteriorly. EXTREMITIES: Moderately overweight, but no edema. IMPRESSION: Questionable chest pain and angina and the patient had a negative stress test 1 year ago and history of cardiac catheterizations in the past. PLAN: Case was discussed with Dr. Wright. The patient was admitted to cardiac catheterization later today and is scheduled. Of note, that most recent troponin has now turned positive. She is scheduled for catheterization, so we will proceed. Sylvester Lozada MD
[2017-06-09 05:55] VITALS: PULSE 67
[2017-06-09 07:52] LABS: BASO # 0.05 K/mm3 (0.0-2.0); BASO % 0.5 % (0.0-3.0); EOS # 0.3 (0.0-0.7); EOS % 2.6 % (1.5-5.0); GRAN # 5.48 (1.4-6.5); GRAN % 53.6 % (50.0-68.0); HEMOGLOBIN 14.3 g/dL (12.0-16.0); LYMPH # 3.9 (1.2-3.4); MEAN CELL VOLUME 89.2 fl (80.0-105.0); MEAN CORPUSCULAR HEMOGLOBIN 29.2 pg (25.0-35.0); MEAN CORPUSCULAR HGB CONC 32.7 g/dl (31.0-37.0); MONO # 0.5 (0.1-0.6); MONO % 5.3 % (1.0-6.0); PLATELET COUNT 234 10^3/uL (120.0-450.0); RED CELL DISTRIBUTION WIDTH 13.6 % (11.5-14.5); WHITE BLOOD COUNT 10.2 10^3/ul (4.5-11.0)
[2017-06-09 08:10] LABS: ALB/GLOB RATIO 1.4 (1.1-1.8); ALT/SGPT 24 U/L (7-56); AST/SGOT 26 U/L (15-39); BLOOD UREA NITROGEN 11 mg/dL (7-21); CALCIUM 9.5 mg/dL (8.4-10.5); GFR AFRICAN-AMERICAN > 60; GFR NON-AFRICAN AMERICAN > 60; MAGNESIUM 1.8 mg/dL (1.7-2.2)
[2017-06-09] MEDS: methIMAzole 5 MG TAB PO SCH (10:06)
[2017-06-09] MEDS: Potassium Chloride 20 mEq ER Tab PO SCH (10:07)
--- NOTE | 2017-06-09 10:08 | CP.PCM.PN ---
Subjective - Date & Time of Evaluation Date of Evaluation: 06/09/17 Time of Evaluation: 09:15 - Subjective Subjective: Pt seen stat for her c/o chest pain going to the R shoulder.She states the pain actually started like a soreness last night,got worse this AM. It is described as an intermittent tightness across the chest radiating to the R shoulder and is worse on moving the R shoulder.On a scale of 1 to 10 it is a 4.She felt clammy earlier,not now. Pt was admitted for c/o chest pain,had a cardiac cath yesterday,was noted to have non obstructive CAD. VS are stable PMH:HTN,TIA,Hyperlipidemia,Anxiety,Hyperthyroidism Objective - Vital Signs/Intake and Output Vital Signs (last 24 hours): Temp Pulse Resp BP Pulse Ox 97.8 F 67 20 113/59 L 93 L 06/09/17 05:53 06/09/17 05:53 06/09/17 05:53 06/09/17 05:53 06/09/17 05:53 Intake and Output: 06/09/17 06/09/17 06:59 18:59 Intake Total 540 Output Total 450 Balance 90 - Medications Medications: Current Medications Aspirin (Ecotrin) 81 mg PO DAILY [facility] Magnesium Chloride (Slow-Mag) 64 mg PO DAILY [facility] Last Admin: 06/08/17 09:15 Dose: 64 mg Methimazole (Tapazole) 5 mg PO DAILY [facility] Last Admin: 06/08/17 09:16 Dose: 5 mg Metoprolol Tartrate (Lopressor) 25 mg PO BID [facility] Last Admin: 06/08/17 17:47 Dose: 25 mg Oxycodone/Acetaminophen (Percocet 5/325 Mg Tab) 1 tab PO Q4 PRN PRN Reason: Pain, severe (8-10) Stop: 06/11/17 00:01 Last Admin: 06/08/17 20:32 Dose: 1 tab Potassium Chloride (K-Dur 20 Meq Er Tab) 20 meq PO DAILY [facility] Last Admin: 06/08/17 12:14 Dose: 20 meq - Labs Labs: 06/09/17 07:46 06/09/17 07:46 PT 11.0 Seconds (9.9-11.8) 06/07/17 18:34 INR 1.02 (0.93-1.08) 06/07/17 18:34 APTT 31.5 Seconds (23.7-30.8) H 06/07/17 18:34 - Constitutional Appears: No Acute Distress - Head Exam Head Exam: ATRAUMATIC, NORMAL INSPECTION, NORMOCEPHALIC - Eye Exam Eye Exam: PERRL - ENT Exam ENT Exam: Mucous Membranes Moist - Neck Exam Neck Exam: Normal Inspection - Respiratory Exam Respiratory Exam: Clear to Ausculation Bilateral - Cardiovascular Exam Cardiovascular Exam: REGULAR RHYTHM, +S1, +S2 Additional comments: No chest wall tenderness. - GI/Abdominal Exam GI & Abdominal Exam: Soft, Normal Bowel Sounds. absent: Tenderness - Extremities Exam Extremities Exam: Normal Inspection. absent: Calf Tenderness - Back Exam Back Exam: NORMAL INSPECTION - Neurological Exam Neurological Exam: Alert, Oriented x3 - Skin Skin Exam: Dry, Warm Assessment and Plan - Assessment and Plan (Free Text) Assessment: Chest pain,probably muscular pain Plan: EKG done stat shows NSR,no change from prior EKG in the chart. Motrin 400 mg po ordered stat. Discussed with Dr Lozada.
[2017-06-09 10:11] VITALS: BP 131/68; TEMP 98.3
--- NOTE | 2017-06-09 18:51 | CARD ---
APPROVED REPORT EKG Measurement Heart [id number] [place] [id number] <Conclusion> Normal sinus rhythm Low voltage QRS Borderline ECG
--- NOTE | 2017-06-10 04:57 | DS ---
HISTORY OF PRESENT ILLNESS: This is 57-year-old women, who is known for few years, who presented to the emergency room with 1-hour of pressure like chest pain radiating to the left shoulder. It was not brought on by exertion nor was with associated with diaphoresis, but she did not report a rather classic angina type pain pressing on her chest. She denied reflux, heartburn, nausea, indigestion, but she was taking ibuprofen 800 mg at that time. PAST MEDICAL HISTORY: Significant for hypertension, hyperlipidemia, and TIA in the past. She had a cardiac catheterization several years ago that was normal. She had a stress test approximately one year ago, which was unremarkable. MEDICATIONS: Include lisinopril/HCTZ, clorazepate, ranitidine, Singulair, and metoprolol. COURSE OF HOSPITAL STAY: She was admitted to medical floor, seen by her microstrategy developer, Dr. Wright. In view of the normal stress test a year ago and a classic symptoms of atypical angina, she underwent a cardiac catheterization. Catheterization required was essentially unremarkable with nonobstructive plaque in coronary artery tree to be treated medically. No stent was needed or placed. On the patient service specialist hours of the day of discharge, the patient reported chest discomfort. She thought it was mostly in the right pectoralis muscles, made worse with manipulation over the pectoralis and movement of the arm. I also talked to her at length regarding any signs of reflux and there may be a strong gastroenterology component to her symptoms. So, she will be ready for discharge to home today. I will send in prescription for omeprazole 40 mg daily as well as Carafate/sucralfate 1 g a.c. and at bedtime. She will follow up with us in the office in approximately one week. FINAL DISCHARGE DIAGNOSES: 1. Chest pain, not of cardiac origin. 2. Pectoralis muscle chest wall pain. 3. History of peptic ulcer disease with new reflux type symptoms failing outpatient H2 blockers alone. 4. Hyperthyroidism on Tapazole. 5. History of transient ischemic attack. Sylvester Lozada MD
--- NOTE | 2017-06-10 13:52 | CARD ---
APPROVED REPORT EXAM: Two-dimensional and M-mode echocardiogram with Doppler and color Doppler. INDICATION Chest Pain LVFX 2D DIMENSIONS Left Atrium (2D)3.4 (1.6-4.0cm)IVSd0.8 (0.7-1.1cm) LVDd4.5 (3.9-5.9cm)PWd1.0 (0.7-1.1cm) LVDs2.8 (2.5-4.0cm)FS (%) 37.4 % LVEF (%)67.6 (>50%) M-Mode DIMENSIONS Aortic Root3.40 (2.2-3.7cm)Aortic Cusp Exc.1.70 (1.5-2.0cm) Aortic Valve AoV Peak Raoxuupn224.0cm/Erick Peak GR.9mmHg Mitral Valve MV E Opluwmgs29.4cm/sMV A Vwgxchui23.4cm/sE/A ratio1.1 TDI Lateral E' Peak V9.75cm/sMedial E' Peak V7.70cm/sE/Lateral E'9.0 E/Medial E'11.4 Pulmonary Valve PV Peak Zooixnvg82.7cm/sPV Peak Grad.2mmHg Tricuspid Valve TR Peak Eddjtsyf456ww/sRAP [id number] Peak Gr.17mmHg [id number] LEFT VENTRICLE The left ventricle is normal size. There is normal left ventricular wall thickness. The left ventricular function is normal.EF-60-65% There is normal LV segmental wall motion. The left ventricular diastolic function is normal. No left ventricle thrombus noted on this study. There is no ventricular septal defect visualized. There is no left ventricular aneurysm. There is no mass noted in the left ventricle. RIGHT VENTRICLE The right ventricle is normal size. There is normal right ventricular wall thickness. The right ventricular systolic function is normal. ATRIA The left atrium size is normal. The right atrium size is normal. The interatrial septum is intact with no evidence for an atrial septal defect. AORTIC VALVE The aortic valve is thickened but opens well. There is trace aortic regurgitation. There is no aortic valvular stenosis. There is no aortic valvular vegetation. MITRAL VALVE The mitral valve is thickened but opens well. Mitral regurgitation is trace. There is no mitral valve stenosis. There is no evidence of mitral valve prolapse. TRICUSPID VALVE The tricuspid valve leaflets are thickened , but open well. There is trace tricuspid regurgitation.RVSP-27 mmof Hg. There is no tricuspid valve stenosis. There is no tricuspid valve prolapse or vegetation. PULMONIC VALVE The pulmonary valve is normal in structure. There is no pulmonic valvular regurgitation. There is no pulmonic valvular stenosis. GREAT VESSELS The aortic root is normal in size. The ascending aorta is normal in size. The pulmonary artery is normal. The IVC is normal in size and collapses >50% with inspiration. PERICARDIAL EFFUSION There is no pleural effusion. There is a trace pericardial effusion. <Conclusion> Normal chamber Size. EF-60-65% Trace MR/TR/AR RVSP-27 mmof Hg. Trace pericardial effusion.
== END 2017-06-09 11:25 | disposition home or self-care (01) ==
LOC: ED 18:28 → ERH 23:02 → 2RNO 06-08 01:20 → INTOOBSV 06-08 14:46 → OBSVTOIN 06-08 14:46 → 2RSO 06-08 17:07
PROVIDERS: ADMIT Internal Medicine; ATTEND Internal Medicine
DX: I21.4 Non-ST elevation (NSTEMI) myocardial infarction (principal); I25.110 Atherosclerotic heart disease of native coronary artery with unstable angina pectoris; R07.89 Other chest pain; E05.90 Thyrotoxicosis, unspecified without thyrotoxic crisis or storm; Z86.73 Personal history of transient ischemic attack (TIA), and cerebral infarction without residual deficits; E66.9 Obesity, unspecified; Z68.36 Body mass index [BMI] 36.0-36.9, adult; E78.00 Pure hypercholesterolemia, unspecified; E78.5 Hyperlipidemia, unspecified; F17.210 Nicotine dependence, cigarettes, uncomplicated; I10 Essential (primary) hypertension; I67.9 Cerebrovascular disease, unspecified; K21.9 Gastro-esophageal reflux disease without esophagitis; Z79.82 Long term (current) use of aspirin; J44.9 Chronic obstructive pulmonary disease, unspecified; Z79.899 Other long term (current) drug therapy; Z87.01 Personal history of pneumonia (recurrent); Z87.440 Personal history of urinary (tract) infections; Z90.49 Acquired absence of other specified parts of digestive tract; M19.90 Unspecified osteoarthritis, unspecified site; Z88.5 Allergy status to narcotic agent; Z88.0 Allergy status to penicillin; F41.9 Anxiety disorder, unspecified
CPT/HCPCS: 36415; 71010; 71275; 74175; 80053; 80061; 81001; 82550; 83036; 83615; 83690; 83735; 84100; 84443; 84484; 85025; 85610; 85651; 85730; 87086; 93005; 93306; 93458; 96365; 96375; 96376; 99152; 99153; 99285; C1769; C1887; G0378; J1644; J2250; J2270; J2405; J3010; J3475; J7040

== ENCOUNTER 2018-05-06 14:05 | Observation (INO) | payer MEDICAID ==
[2018-05-06 14:11] VITALS: BMI 41.5
[2018-05-06 15:00] LABS: BASO # 0.02 K/mm3 (0.0-2.0); BASO % 0.1 % (0.0-3.0); EOS # 0.3 (0.0-0.7); EOS % 2.1 % (1.5-5.0); GRAN # 8.2 (1.4-6.5); GRAN % 60.4 % (50.0-68.0); HEMOGLOBIN 14.8 g/dL (12.0-16.0); LYMPH # 4.4 (1.2-3.4); LYMPH % 32.2 % (22.0-35.0); MEAN CELL VOLUME 86.6 fl (80.0-105.0); MEAN CORPUSCULAR HEMOGLOBIN 30.1 pg (25.0-35.0); MEAN CORPUSCULAR HGB CONC 34.8 g/dl (31.0-37.0); MEAN PLATELET VOLUME 10.8 fl (7.0-11.0); MONO # 0.7 (0.1-0.6); MONO % 5.2 % (1.0-6.0); RBC 4.91 10^6/uL (3.5-6.1); WHITE BLOOD COUNT 13.6 10^3/ul (4.5-11.0)
--- NOTE | 2018-05-06 15:07 | CT ---
PROCEDURE: CT HEAD WITHOUT CONTRAST. HISTORY: Code Stroke COMPARISON: Comparison made with prior CT scan brain 11/10/2015. TECHNIQUE: Contiguous helical/transaxial computed tomography images were obtained through the head/brain without intravenous contrast. Radiation dose: Total exam DLP = 865.86 mGy-cm. This CT exam was performed using one or more of the following dose reduction techniques: Automated exposure control, adjustment of the mA and/or kV according to patient size, and/or use of iterative reconstruction technique. FINDINGS: HEMORRHAGE: No acute parenchymal, subarachnoid or extra-axial hemorrhage. BRAIN: No evidence of large acute infarct. Note that the possibility of a small hyperacute infarct cannot be excluded based on this study. Clinical correlation recommended. VENTRICLES: No obstructive hydrocephalus hydrocephalus. CALVARIUM: Unremarkable. PARANASAL SINUSES: Unremarkable as visualized. No significant inflammatory changes. MASTOID AIR CELLS: Unremarkable as visualized. No inflammatory changes. OTHER FINDINGS: None. IMPRESSION: No evidence of acute intracranial hemorrhage. No evidence of large acute infarct however the possibility of a small hyperacute infarct cannot be excluded on this exam clinical correlation recommended. Findings discussed with Dr. parth angulo at approximately 3:05 p.m. with written down and read back verification.
[2018-05-06 15:11] LABS: INR 1.03 (0.93-1.08); PARTIAL THROMBOPLASTIN TIME 32.3 Seconds (25.1-36.5); PROTHROMBIN TIME 11.8 SECONDS (9.4-12.5)
[2018-05-06 15:14] LABS: ALB/GLOB RATIO 1.3 (1.1-1.8); ALBUMIN 4.5 g/dL (3.0-4.8); ALT/SGPT 35 U/L (7-56); AST/SGOT 27 U/L (14-36); BLOOD UREA NITROGEN 12 mg/dL (7-21); CALCIUM 10.1 mg/dL (8.4-10.5); GFR AFRICAN-AMERICAN > 60; GFR NON-AFRICAN AMERICAN > 60; HDL CHOLESTEROL 38 mg/dL (29-60)
[2018-05-06] MEDS: Sodium Chloride 0.9% 1,000 ML IV SCH (15:21)
--- NOTE | 2018-05-06 15:23 | RAD ---
HISTORY: Code Stroke COMPARISON: Comparison chest 06/07/2017. FINDINGS: LUNGS: No active pulmonary disease. PLEURA: No significant pleural effusion identified, no pneumothorax apparent. CARDIOVASCULAR: Normal. OSSEOUS STRUCTURES: No significant abnormalities. VISUALIZED UPPER ABDOMEN: Normal. OTHER FINDINGS: None. IMPRESSION: No active disease.
[2018-05-06 15:25] LABS: LDL CHOLESTEROL 183 mg/dL (0-129); TROPONIN I < 0.01 ng/mL
--- NOTE | 2018-05-06 17:24 | EDPD ---
HPI Stroke - General Time Seen by Provider: 05/06/18 14:31 Chief Complaint: Weakness/Neurological Deficit - History of Present Illness Narrative History of Present Illness (Free Text): 05/06/18 14:42 58 year old female, with past medical history of hypertension, presents to the Emergency department complaining of left facial, left arm and left leg numbness since 10 am this morning. Patient informs he was at home when the symptoms began and has been unchanged since then. Patient states unfamiliar symptoms from previous and requests medical evaluation. Patient denies any fever, chills , nausea, vomiting, diarrhea, abdominal pain, chest pain, shortness of breath, slurred speech, vision changes, other acute neurological changes or any other complaints. PMD: Dr. Lozada Onset:: Hours Timing: Currently Symptomatic Context: Home Associated Symptoms: Numbness Exacerbated by: Nothing Relieved by: Nothing - Location Locate Left: Face - Pain Assessment/Levels Maximum Severity: Mild Severity Current: Mild rTPA Inclusion/Exclusion - Refusal of Treatment Patient Refused Treatment: No - Inclusion Criteria for Altepase Patient is 18 years or Older: Yes The Clinical Diagnosis of Ischemic Stroke That is Causing a Potentially Disabling Neurological Deficit: No Time of Onset is Well Established to be Less Than 270 Minute Before Treatment Would Begin: Yes Risk/Benefit Discussed With Patient/Family Member Present: No Past Medical History - Provider Review Nursing Documentation Reviewed: Yes - Infectious Disease Hx of Infectious Diseases: None - Reproductive Menopause: Yes - Cardiac Hx Hypertension: Yes - Pulmonary Hx Pneumonia: Yes - Neurological Hx Migraine: Yes Hx Transient Ischemic Attacks (TIA): Yes - HEENT Hx HEENT Disorder: Yes Hx Blind: No Hx Cataracts: No Hx Deafness: No Hx Difficulty Chewing: No Hx Epistaxis: No Hx Glaucoma: No Hx Macular Degeneration: No Other/Comment: Wear glasses - Renal Hx Renal Disorder: No Hx Dialysis: No Hx Kidney Stones: No Hx Neurogenic Bladder: No Hx Pyelonephritis: No Hx Renal Cancer: No Hx Renal Failure: No - Endocrine/Metabolic Hx Hyperthyroidism: Yes - Hematological/Oncological Hx Blood Disorders: No - Integumentary Hx Dermatological Disorder: Yes Other/Comment: Loss of pigmentation - Musculoskeletal/Rheumatological Hx Arthritis: Yes - Gastrointestinal Hx Gastrointestinal Disorders: Yes Hx Gastroesophageal Reflux: Yes - Genitourinary/Gynecological Hx Genitourinary Disorders: No Hx Urinary Tract Infection: Yes - Psychiatric Hx Anxiety: Yes Hx Substance Use: No - Surgical History Hx Appendectomy: Yes Hx Cholecystectomy: Yes - Anesthesia Hx Anesthesia: Yes - Suicidal Assessment Feels Threatened In Home Enviroment: No Family/Social History - Family/Social History Family History: Non-Contributory Allergies/Home Meds Allergies/Adverse Reactions: Allergies codeine Allergy (Intermediate, Verified 05/06/18 14:17) DIARRHEA SWEATS Penicillins Allergy (Mild, Verified 05/06/18 14:17) VOMITING DIARRHEA Home Medications: Home Meds Medication Instructions Recorded Confirmed Aspirin [Aspir 81] 81 mg PO DAILY 03/17/13 05/06/18 Metoprolol Tartrate 25 mg PO BID 11/16/15 05/06/18 Mirtazapine 15 mg PO DAILY 11/16/15 05/06/18 Ranitidine HCl 300 mg PO DAILY 07/22/16 05/06/18 Clorazepate Dipotassium [Tranxene 7.5 mg PO PRN PRN 03/24/17 05/06/18 T-Tab] Methimazole [Tapazole] 2.5 mg PO DAILY 03/24/17 05/06/18 Montelukast Sodium [Singulair] 5 mg PO HS 03/24/17 05/06/18 Omeprazole 40 mg PO DAILY 06/09/17 05/06/18 hydroCHLOROthiazide [Hydrodiuril] 25 mg PO DAILY 05/06/18 05/06/18 Review of Systems - Physician Review All systems were reviewed & negative as marked: Yes - Review of Systems Constitutional: Normal. absent: Fevers Eyes: Normal. absent: Vision Changes ENT: Normal Respiratory: Normal. absent: SOB Cardiovascular: Normal. absent: Chest Pain Gastrointestinal: Normal. absent: Abdominal Pain, Diarrhea, Nausea, Vomiting Genitourinary Female: Normal Musculoskeletal: Normal Skin: Normal Neurological: Other (left sided numbness.). absent: Speech Changes Endocrine: Normal Hemo/Lymphatic: Normal Psychiatric: Normal ED Stroke Physical Exam Vital Signs Reviewed: Yes Vital Signs Temp Pulse Resp BP Pulse Ox 05/06/18 16:05 72 18 113/79 95 05/06/18 15:00 84 18 108/61 97 05/06/18 14:07 98.4 F 92 H 18 112/72 95 Temperature: Afebrile Blood Pressure: Normal Pulse: Regular Respiratory Rate: Normal Appearance: Positive for: Well-Appearing, Non-Toxic, Comfortable Pain Distress: None Mental Status: Positive for: Alert and Oriented X 3 Finger Stick Blood Glucose: 92 - Systems Exam Head: Present: Atraumatic, Normocephalic Pupils: Present: PERRL Extroacular Muscles: Present: EOMI Conjunctiva: Present: Normal Mouth: Present: Moist Mucous Membranes Neck: Present: Normal Range of Motion Respiratory/Chest: Present: Clear to Auscultation, Good Air Exchange. No: Respiratory Distress, Accessory Muscle Use Cardiovascular: Present: Regular Rate and Rhythm, Normal S1, S2. No: Murmurs Abdomen: Present: Normal Bowel Sounds. No: Tenderness, Distention, Peritoneal Signs Genitourinary/Pelvic Exam: Present: NI. No: C, E Back: Present: GCS, CN, SP Upper Extremity: Present: Normal Inspection. No: Cyanosis, Edema Lower Extremity: Present: Normal Inspection. No: Edema Neurologic: Present: GCS=15, CN II-XII Intact, Speech Normal, Motor Func Grossly Intact, Normal Sensory Function. No: Facial Droop Skin: Present: Warm, Dry, Normal Color. No: Rashes Lymphatic: Present: OX3, NI, NC Psychiatric: Present: Alert, Oriented x 3, Normal Insight, Normal Concentration Medical Decision Making ED Course and Treatment: 05/06/18 14:42 Impression: 58 year old female presents to the Emergency department for left sided facial numbness and numbness to left leg and arm. Differential Diagnosis included but are not limited to: CVA vs. TIA Plan: -- Type and Screen -- CT of Head -- EKG -- Labs -- Chest X-ray -- MRI -- Aspirin -- IV Fluids -- Reassess and disposition Prior Visits: Notes and results from previous visits were reviewed. Progress Notes: 05/06/18 14:41 CODE STROKE ACTIVATED. 05/06/18 14:41 EKG: Ordered, reviewed, and independently interpreted the EKG. Rate : 84 BPM Rhythm : NSR Interpretation : Normal axis with prolonged QT 05/06/18 14:[address] Connolly, neurologist business controller, who is aware and requests to consult once CT and lab results are back. 05/06/18 14:[address] Connolly, who is aware of the CT and Lab results, recommends admission to the hospital for further observation. 05/06/18 14:55 Discussed case with PMD, who is aware and agrees with Emergency department management, requests admission to remote telemetry for further observation and treatment. - Lab Interpretations Lab Results: 05/06/18 14:30 05/06/18 14:30 Lab Results 05/06/18 14:30: Sodium 142, Potassium 3.4 L, Chloride 102, Carbon Dioxide 25, Anion Gap 18, BUN 12, Creatinine 0.8, Est GFR ( Amer) > 60, Est GFR (Non- Af Amer) > 60, Random Glucose 95, Calcium 10.1, Total Bilirubin 0.5, AST 27, ALT 35, Alkaline Phosphatase 108, Troponin I < 0.01 D, Total Protein 8.0, Albumin 4.5, Globulin 3.5, Albumin/Globulin Ratio 1.3, Triglycerides 341 H, Cholesterol 260 H, LDL Cholesterol Direct 183 H, HDL Cholesterol 38 05/06/18 14:30: PT 11.8, INR 1.03, APTT 32.3 05/06/18 14:30: WBC 13.6 H D, RBC 4.91, Hgb 14.8, Hct 42.5, MCV 86.6, MCH 30.1, MCHC 34.8, RDW 14.0, Plt Count 298, MPV 10.8, Gran % 60.4, Lymph % (Auto) 32.2, [place] % (Auto) 5.2, Eos % (Auto) 2.1, Baso % (Auto) 0.1, Gran # 8.20 H, Lymph # ( Auto) 4.4 H, [place] # (Auto) 0.7 H, Eos # (Auto) 0.3, Baso # (Auto) 0.02 05/06/18 14:10: POC Glucose (mg/dL) 92 - RAD Interpretation Radiology Orders: 05/06/18 14:42 HEAD W/O (CODE STROKE) [CT] Stat CHEST PORTABLE [RAD] Stat 05/06/18 15:09 BRAIN WITHOUT CONTRAST [MRI] Stat - EKG Interpretation Interpreted by ED Physician: Yes Type: 12 lead EKG - Medication Orders Current Medication Orders: Sodium Chloride (Sodium Chloride 0.9%) 1,000 mls @ 100 mls/hr IV .Q10H SAL Last Admin: 05/06/18 15:21 Dose: 100 mls/hr eMAR Start Stop Document 05/06/18 15:21 PATRICIA (Rec: 05/06/18 15:21 EWO [id number]) Intravenous Solution Start Date 05/06/18 Start Time 15:21 Discontinued Medications Aspirin (Aspirin) 325 mg PO STAT STA Stop: 05/06/18 15:50 Last Admin: 05/06/18 16:21 Dose: 325 mg - Scribe Statement The provider has reviewed the documentation as recorded by the Scribe Isaiah Vitale. All medical record entries made by the Scribe were at my direction and personally dictated by me. I have reviewed the chart and agree that the record accurately reflects my personal performance of the history, physical exam, medical decision making, and the department course for this patient. I have also personally directed, reviewed, and agree with the discharge instructions and disposition. NIHSS Scale ([place]) Time Performed: 14:35 - How Severe is the [place]oke Baseline Level of Consciousness: 0=Alert LOC to Questions: 0=Both comments correct LOC to commands: 0=Obeys both correctly Best Gaze: 0=Normal Visual: 0=No visual loss Facial: 0=Normal Motor Arm - Left: 0=No drift Motor Arm - Right: 0=No drift Motor Leg - Left: 0=No drift Motor Leg - Right: 0=No drift Limb Ataxia: 0=Absent Sensory: 1=Mild to moderate loss Best Language: 0=No aphasia Dysarthia: 0=Normal articulation Extinction & Inattention (Neglect): 0=Normal, no object Score: 1 Risk Level: Minor Stroke Risk Disposition/Present on Arrival - Present on Arrival Any Indicators Present on Arrival: Yes History of DVT/PE: No History of Uncontrolled Diabetes: No Urinary Catheter: No History of Decub. Ulcer: No History Surgical Site Infection Following: None - Disposition Have Diagnosis and Disposition been Completed?: No Diagnosis: TIA (transient ischemic attack) Disposition Time: 03:50 Condition: FAIR
--- NOTE | 2018-05-06 18:18 | CARD ---
APPROVED REPORT EKG Measurement Heart [id number] <Conclusion> Normal sinus rhythm Low voltage QRS Incomplete right bundle branch block Prolonged QT Abnormal ECG
[2018-05-06] MEDS ORDERED: Pneumococcal 23-Valent Vaccine IM ONE (21:16)
[2018-05-07] MEDS: Sodium Chloride 0.9% 1,000 ML IV SCH ×2 (00:25→11:41)
[2018-05-07] MEDS ORDERED: Pantoprazole 40 mg EC Tab PO SCH (07:30)
[2018-05-07 07:31] VITALS: BP 102/64; RESP 20; TEMP 97.7; O2SAT 95
--- NOTE | 2018-05-07 09:03 | CP.PCM.CON ---
History of Present Illness - History of Present Illness History of Present Illness: Neurology Consult Note - Dr. Connolly CC: Left sided numbness HPI: 58 year old female with past medical history of hypertension, hyperlipidemia, and previous TIA(2007) who presented to [facility] ED complaining of left facial, left arm, left leg numbness. Patient reported a four hour history of symptoms at time of presentation on 05/06/18. Patient indicates that she has had a previous TIA before in 2007 with symptoms that resolved within a few hours of onset. Patient continues to complain of numbness and tingling on the left side of her body during todays interview. Patient denies weakness, loss of coordination, speech difficulties, understanding of speech. She denies drooling , difficulty swallowing. Patient reports painful sensation of her left under arm. Patient denies chest pain, shortness of breath, abdominal pain, fever, chills, nausea, vomiting. Hospital Course: Code stroke was called in ED. Head CT was preformed showing no acute intracranial hemorrhage with possibility of small hyperacute infarct not being able to excluded. Patient was given Aspirin 325mg and admitted to Telemetry. MRI was ordered, patient refused due to claustrophobia. Monitored on telemetry overnight. PMH: Hypertension, Hyperlipidemia, TIA, Hypo/Hyperthyroid PSH: Cholecystectomy, Appendectomy SOCHx: Tobacco: 1 PPD for 40 years, ETOH: Denies, ID: Denies ALL: Codeine, PCN MEDS: MAR reviewed Review of Systems - Review of Systems All systems: reviewed and no additional remarkable complaints except (as mentioned in HPI) Past Patient History - Infectious Disease Hx of Infectious Diseases: None - Past Medical History & Family History Past Medical History?: Yes - Past Social History Smoking Status: Heavy Smoker > 10 Cigarettes Daily Alcohol: None Drugs: Denies - CARDIAC Hx Cardiac Disorders: Yes Hx Hypertension: Yes - PULMONARY Hx Respiratory Disorders: Yes Hx Chronic Obstructive Pulmonary Disease (COPD): Yes Hx Pneumonia: Yes - NEUROLOGICAL Hx Neurological Disorder: Yes Hx Dizziness: Yes Hx Migraine: Yes Hx Transient Ischemic Attacks (TIA): Yes - HEENT Hx HEENT Problems: Yes Hx Blind: No Hx Cataracts: No Hx Deafness: No Hx Difficulty Chewing: No Hx Epistaxis: No Hx Glaucoma: No Hx Macular Degeneration: No Other/Comment: Wear glasses - RENAL Hx Chronic Kidney Disease: No Hx Dialysis: No Hx Kidney Stones: No Hx Neurogenic Bladder: No Hx Pyelonephritis: No Hx Renal (Kidney) Cancer: No Hx Renal Failure: No - ENDOCRINE/METABOLIC Hx Hyperthyroidism: Yes - HEMATOLOGICAL/ONCOLOGICAL Hx Blood Disorders: No - INTEGUMENTARY Hx Dermatological Problems: Yes (VITILIGO) Other/Comment: Loss of pigmentation - MUSCULOSKELETAL/RHEUMATOLOGICAL Hx Musculoskeletal Disorders: Yes Hx Arthritis: Yes Hx Falls: No - GASTROINTESTINAL Hx Gastrointestinal Disorders: Yes Hx Gastroesophageal Reflux: Yes - GENITOURINARY/GYNECOLOGICAL Hx Genitourinary Disorders: Yes Hx Urinary Tract Infection: Yes - PSYCHIATRIC Hx Anxiety: Yes Hx Substance Use: No - SURGICAL HISTORY Hx Surgeries: Yes Hx Appendectomy: Yes Hx Cholecystectomy: Yes - ANESTHESIA Hx Anesthesia: Yes Meds Allergies/Adverse Reactions: Allergies Allergy/AdvReac Type Severity Reaction Status Date / Time codeine Allergy Intermediate DIARRHEA Verified 05/06/18 14:17 Penicillins Allergy Mild VOMITING Verified 05/06/18 14:17 - Medications Medications: Current Medications Aspirin (Ecotrin) 81 mg PO DAILY [facility] Famotidine (Pepcid) 40 mg PO [facility] Last Admin: 05/06/18 21:21 Dose: 40 mg Hydrochlorothiazide (Hydrodiuril) 25 mg PO DAILY [facility] Sodium Chloride (Sodium Chloride 0.9%) 1,000 mls @ 100 mls/hr IV .Q10H [facility] Last Admin: 05/07/18 00:25 Dose: 100 mls/hr Methimazole (Tapazole) 2.5 mg PO DAILY [facility] Metoprolol Tartrate (Lopressor) 25 mg PO BID [facility] Mirtazapine (Remeron) 15 mg PO [facility] Last Admin: 05/06/18 21:21 Dose: 15 mg Montelukast Sodium (Singulair) 10 mg PO DAILY SAL Pantoprazole Sodium (Protonix Ec Tab) 40 mg PO ACB [facility] Physical Exam - Constitutional Appears: No Acute Distress - Head Exam Head Exam: ATRAUMATIC, NORMAL INSPECTION, NORMOCEPHALIC - Eye Exam Eye Exam: EOMI, PERRL - Respiratory Exam Respiratory Exam: Clear to Auscultation Bilateral, NORMAL BREATHING PATTERN. absent: Wheezes - Cardiovascular Exam Cardiovascular Exam: REGULAR RHYTHM, +S1, +S2 - Extremities Exam Extremities exam: Negative for: pedal edema, tenderness - Neurological Exam Neurological exam: Alert, Normal Gait, Oriented x3 Additional comments: AAOx3 Blunted/numbness of soft touch of total left side of face, left arm/fingertips, left toes Strength 5/5 in all four extremities Able to move all four extremities past midline Coordination intact, Heel to anderson test normal - Psychiatric Exam Psychiatric exam: Normal Affect, Normal Mood - Skin Skin Exam: Dry, Intact Additional comments: vitligo present on face, abdomen, back, extremities Results - Vital Signs Recent Vital Signs: Last Vital Signs Temp 97.7 F 05/07/18 07:29 Pulse 71 05/07/18 07:29 Resp 20 05/07/18 07:29 BP 102/64 05/07/18 07:29 Pulse Ox 95 05/07/18 07:29 - Labs Result Diagrams: 05/06/18 14:30 05/06/18 14:30 Labs: Laboratory Results - last 24 hr 05/07/18 07:34 POC Glucose (mg/dL) 96 Assessment & Plan - Assessment and Plan (Free Text) Assessment: 58 year old female with past medical history if hypertension, hyperlipidemia, and TIA who presented to [facility] with left sided numbness. Patient evaluated with Head CT and admitted to telemetry for observation. Plan: Left facial, arm, leg numbness - Etiology: Likely TIA vs. Thalamic Lacunar stroke - ABCD2 score: 2 (low risk) - Head CT showing no acute intracranial hemorrhage, unable to rule out small hyperacute infarct - MRI ordered and pending - Head and Neck CTA - Aspirin, statin - PT/OT - Further recs per Dr. Connolly Case and plan discussed with attending, Dr. Mohsen Constantino PGY2 - Date & Time Date: 05/07/18 Time: 09:13
[2018-05-07] MEDS ORDERED: methIMAzole 5 MG TAB PO SCH (10:00)
[2018-05-07 12:31] VITALS: PULSE 60
[2018-05-07] MEDS ORDERED: Iohexol 350 MG/100 ML VIAL ONE (12:57)
--- NOTE | 2018-05-07 13:53 | CT ---
Date of service: 05/07/2018 PROCEDURE: CT Angiography of the neck with contrast HISTORY: evaluation of blood flow COMPARISON: None available. TECHNIQUE: Contiguous axial images of the neck were obtained from the level of the skull-base to the superior mediastinum in the arteriographic phase of enhancement. Coronal and sagittal reformats or also generated. IV contrast dose: 150 cc of Omni 350 Radiation Dose - DLP: 727 mGy-cm This CT exam was performed using one or more of the following dose reduction techniques: Automated exposure control, adjustment of the mA and/or kV according to patient size, and/or use of iterative reconstruction technique. FINDINGS: RIGHT CAROTID ARTERIES: Common Carotid Artery: Normal. Carotid Bifurcation: Normal. Internal Carotid Artery:Small calcified plaques. No significant stenosis External Carotid Artery (proximal branches): Normal. LEFT CAROTID ARTERIES: Common Carotid Artery: Normal. Carotid Bifurcation: Normal. Internal Carotid Artery:Small calcified plaques. No significant stenosis External Carotid Artery (proximal branches): Normal. VERTEBRAL ARTERIES: Right Vertebral Artery: Normal. Left Vertebral Artery: Normal. OTHER FINDINGS: None. IMPRESSION: No significant stenosis PROCEDURE: CT Angiography of the Brain. HISTORY: evaluation of blood flow COMPARISON: None available. TECHNIQUE: CT angiography of the intracranial arteries was performed. Coronal and sagittal maximum intensity projection reformated images were generated. This CT exam was performed using one or more of the following dose reduction techniques: Automated exposure control, adjustment of the mA and/or kV according to patient size, and/or use of iterative reconstruction technique. FINDINGS: INTERNAL CEREBRAL ARTERIES: Unremarkable. The skull base, petrous, cavernous and supraclinoid segments are bilaterally widely patent. ANTERIOR CEREBRAL ARTERIES: Unremarkable. A1 and A2 segments are widely patent. Smaller distal branches unremarkable, as visualized. MIDDLE CEREBRAL ARTERIES: Unremarkable. M1 and M2 segments are widely patent. Perisylvian branches grossly symmetric. POSTERIOR CIRCULATION: Basilar Artery: Unremarkable. Distal Vertebral Arteries: Unremarkable. Posterior Cerebral Arteries: Unremarkable. Posterior Inferior Cerebellar Arteries: Unremarkable. ANEURYSM/ VASCULAR MALFORMATIONS: None. OTHER FINDINGS: None. IMPRESSION: Unremarkable CT Angiography of the Brain.
--- NOTE | 2018-05-08 15:04 | HP ---
HISTORY OF PRESENT ILLNESS: The patient is a 58-year-old female who presents to the Emergency Room complaining of approximately 4 hours history of left facial numbness and left arm and left leg numbness. She knows that the symptoms were of a rather sudden onset and they were persistent; after several hours, the patient decided to present to the Emergency Room for further evaluation. She does have a history of TIA in the past. However, she claims that the symptoms of her previous TIA were totally different from these. The patient is known to have a past medical history positive for hypertension, gastroesophageal reflux disease, migraine headaches, hyperthyroidism, status post appendectomy, status post cholecystectomy. SHE IS KNOWN TO BE ALLERGIC TO CODEINE WELL PENICILLIN. Medications at the time of admission included aspirin 81 mg daily; metoprolol tartrate 25 mg twice a day; mirtazapine 15 mg daily; ranitidine 300 mg once a day; Tranxene at 7.5 mg as needed, however the patient states she very, very rarely takes this; Tapazole 2.5 mg daily; Singulair 5 mg at bedtime; omeprazole 40 mg daily and hydrochlorothiazide 25 mg daily. Review of systems is, otherwise, unremarkable. PHYSICAL EXAMINATION: HEAD, EYES, EARS, NOSE AND THROAT: Unremarkable. VITAL SIGNS: She is afebrile at 97.2 degrees Fahrenheit, blood pressure is 102/64 and heart rate is 71 beats per minute. GENERAL: The patient is awake, alert and oriented. She passed her swallowing evaluation. LUNGS: Clear to auscultation and percussion. HEART: Regular. No murmurs are appreciated. ABDOMEN: Soft and nontender with no organomegaly. EXTREMITIES: Free of cyanosis, clubbing or edema. SKIN: Positive for vitiligo. NEUROLOGIC: The patient is awake, alert and oriented. Hand air traffic coordinator are equal bilaterally. She is moving all extremities. She denies any weakness or dropping things. Dexterity appears to be good. However, the patient still complains of this numbness in the right face, neck and right upper extremity. DATA: Laboratory studies show the white blood cell count to be 13.6, hemoglobin and hematocrit are 14.8 and 42.5 respectively. Platelet count is 298. Sodium is 142, potassium 3.4, blood urea nitrogen 12, creatinine 0.8, nonfasting glucose is 95. Her lipids are elevated with a triglyceride of 341. Cholesterol is elevated at 260. Troponins are negative. CT scan of the head was done and this was negative for acute bleed or infarct. EKG showed regular sinus rhythm with incomplete right bundle-branch block and prolonged QT interval. Chest x-ray shows no acute disease. So, the patient is admitted with a diagnosis of transient ischemic attack. Neurology consult is requested of Dr. Willson. The patient will be reevaluated in the morning as suggested by CAT scan, MRI is ordered. Shailesh Lozada MD
--- NOTE | 2018-05-08 19:23 | DS ---
HOSPITAL COURSE: The patient is a 58-year-old female who was admitted to the [facility] complaining of numbness of the left face, neck, upper extremity, and lower extremity. These symptoms persisted, the patient presented to the emergency room, was evaluated and admitted. There was no weakness of the left side. There was no facial droop, no slurred speech. CAT scan of the head was negative. EKG showed regular sinus rhythm with an incomplete right bundle branch block and prolonged QT interval. Chest x-ray showed no acute disease. Laboratory studies, CBC, chemistries were unremarkable except for elevated lipid profile. Her vital signs were stable. The patient is known to have a history of hypertension, gastroesophageal reflux, migraine headaches, , possible TIA in the past. She is status post appendectomy and status post cholecystectomy. During her hospital stay, MRI was ordered; however, the patient is extremely anxious and claustrophobic. She received 0.5 mg of Xanax, followed by 10 mg of Valium. However, the patient was still too anxious and could not be placed in the MRI. Therefore, the test was canceled. At that point, the patient decided there was no use for her to stay in the hospital and she will arrange for an open MRI of the brain to be done as an outpatient. So at this point, I agreed to discharge the patient to home. She is continuing to take aspirin along with her other medications as prior to hospitalization. The patient will be followed up closely post discharge and we will be awaiting the open MRI of the brain to further evaluate the patient's condition. FINAL DIAGNOSES: 1. Transient ischemic attack. 2. Anxiety. 3. Hypertension. 4. Gastroesophageal reflux. 5. Hyperthyroidosis. 6. History of migraine headaches. Shailesh Lozada MD
== END 2018-05-07 17:02 | disposition home or self-care (01) ==
LOC: ED 14:05 → ERH 16:02 → 3RNO 18:06
PROVIDERS: ADMIT Internal Medicine; ATTEND Internal Medicine
DX: R20.0 Anesthesia of skin (principal); I10 Essential (primary) hypertension; E78.5 Hyperlipidemia, unspecified; Z86.73 Personal history of transient ischemic attack (TIA), and cerebral infarction without residual deficits; J44.9 Chronic obstructive pulmonary disease, unspecified; K21.9 Gastro-esophageal reflux disease without esophagitis; F17.210 Nicotine dependence, cigarettes, uncomplicated
CPT/HCPCS: 70450; 70496; 70498; 71045; 80053; 80061; 82948; 83036; 84484; 85025; 85610; 85730; 93005; 97116; 97162; 99285; G0378; G8978; G8979; J7030; Q9967

== ENCOUNTER 2018-05-08 13:37 | Emergency (ER) | payer MEDICAID ==
[2018-05-08 13:38] VITALS: BMI 41.5
[2018-05-08 13:51] VITALS: TEMP 98.1
--- NOTE | 2018-05-08 14:49 | CT ---
Date of service: 05/08/2018 PROCEDURE: CT HEAD WITHOUT CONTRAST. HISTORY: left-sided weakness x 3 days COMPARISON: None available. TECHNIQUE: Axial computed tomography images were obtained through the head/brain without intravenous contrast. Radiation dose: Total exam DLP = 994 mGy-cm. This CT exam was performed using one or more of the following dose reduction techniques: Automated exposure control, adjustment of the mA and/or kV according to patient size, and/or use of iterative reconstruction technique. FINDINGS: HEMORRHAGE: No intracranial hemorrhage. BRAIN: No mass effect or edema. No atrophy or chronic microvascular ischemic changes. VENTRICLES: Unremarkable. No hydrocephalus. CALVARIUM: Unremarkable. PARANASAL SINUSES: Unremarkable as visualized. No significant inflammatory changes. MASTOID AIR CELLS: Unremarkable as visualized. No inflammatory changes. OTHER FINDINGS: None. IMPRESSION: No acute findings
[2018-05-08 15:12] LABS: BASO # 0.03 K/mm3 (0.0-2.0); BASO % 0.2 % (0.0-3.0); EOS # 0.2 (0.0-0.7); EOS % 1.7 % (1.5-5.0); GRAN # 7.29 (1.4-6.5); HEMOGLOBIN 14.4 g/dL (12.0-16.0); LYMPH # 4.2 (1.2-3.4); LYMPH % 34.1 % (22.0-35.0); MEAN CELL VOLUME 87.4 fl (80.0-105.0); MEAN CORPUSCULAR HEMOGLOBIN 29.8 pg (25.0-35.0); MEAN CORPUSCULAR HGB CONC 34.1 g/dl (31.0-37.0); MEAN PLATELET VOLUME 10.6 fl (7.0-11.0); MONO # 0.6 (0.1-0.6); RBC 4.83 10^6/uL (3.5-6.1); RED CELL DISTRIBUTION WIDTH 13.9 % (11.5-14.5); WHITE BLOOD COUNT 12.4 10^3/ul (4.5-11.0)
[2018-05-08 15:23] LABS: ALB/GLOB RATIO 1.3 (1.1-1.8); ALBUMIN 4.5 g/dL (3.0-4.8); ALT/SGPT 31 U/L (7-56); AST/SGOT 23 U/L (14-36); BLOOD UREA NITROGEN 10 mg/dL (7-21); CALCIUM 9.3 mg/dL (8.4-10.5); GFR AFRICAN-AMERICAN > 60; GFR NON-AFRICAN AMERICAN > 60
[2018-05-08 15:28] LABS: INR 1.02 (0.93-1.08); PARTIAL THROMBOPLASTIN TIME 31.7 Seconds (25.1-36.5); PROTHROMBIN TIME 11.6 SECONDS (9.4-12.5)
--- NOTE | 2018-05-08 15:50 | ED PDOC ---
Arrival/HPI - General Chief Complaint: Weakness/Neurological Deficit Time Seen by Provider: 05/08/18 13:49 - History of Present Illness Narrative History of Present Illness (Text): 58 year old female presents with left sided pressure like headache and left arm numbness and pain. She also feels pressure in bilateral lower extremities. She reports having some facial droop, and reduced strength on the left side of her face. On presentation, she seems to be comfortable and AAOx3. She first reported these symptoms started 2 days ago. She was admitted at [facility] and evaluated for stroke. Head CT was negative, Head and neck CTA was negative, and MRI was attempted. Due to her claustrophobia, she was unable to finish the MRI test event though she was given Ativan. She was discharged yesterday and told to follow up with her primary care physician. She followed up with Dr. Richi Juarez and told him her symptoms were worsening so he sent her to the emergency department. 05/08/18 15:42 (Salomón Quinonez) Past Medical History - Provider Review Nursing Documentation Reviewed: Yes - Infectious Disease Hx of Infectious Diseases: None - Cardiac Hx Cardiac Disorders: Yes Hx Hypertension: Yes - Pulmonary Hx Chronic Obstructive Pulmonary Disease (COPD): Yes - Neurological Hx Neurological Disorder: Yes Hx Dizziness: Yes Hx Migraine: Yes Hx Transient Ischemic Attacks (TIA): Yes - HEENT Hx HEENT Disorder: Yes Hx Blind: No Hx Cataracts: No Hx Deafness: No Hx Difficulty Chewing: No Hx Epistaxis: No Hx Glaucoma: No Hx Macular Degeneration: No Other/Comment: Wear glasses - Renal Hx Renal Failure: No - Endocrine/Metabolic Hx Hyperthyroidism: Yes - Hematological/Oncological Hx Blood Disorders: No - Integumentary Hx Dermatological Disorder: Yes (VITILIGO) Other/Comment: Loss of pigmentation - Musculoskeletal/Rheumatological Hx Arthritis: Yes - Gastrointestinal Hx Gastrointestinal Disorders: Yes Hx Gastroesophageal Reflux: Yes - Genitourinary/Gynecological Hx Genitourinary Disorders: Yes Hx Urinary Tract Infection: Yes - Psychiatric Hx Anxiety: Yes Hx Substance Use: No - Surgical History Hx Appendectomy: Yes Hx Cholecystectomy: Yes - Anesthesia Hx Anesthesia: Yes Hx Anesthesia Reactions: No Hx Malignant Hyperthermia: No - Suicidal Assessment Feels Threatened In Home Enviroment: No Family/Social History - Physician Review Nursing Documentation Reviewed: Yes Family/Social History: Unknown Family HX Smoking Status: Heavy Smoker > 10 Cigarettes Daily Hx Alcohol Use: No Hx Substance Use: No Allergies/Home Meds Allergies/Adverse Reactions: Allergies codeine Allergy (Intermediate, Verified 05/06/18 14:17) DIARRHEA SWEATS Penicillins Allergy (Mild, Verified 05/06/18 14:17) VOMITING DIARRHEA Home Medications: Home Meds Medication Instructions Recorded Confirmed Aspirin [Aspir 81] 81 mg PO DAILY 03/17/13 05/06/18 Metoprolol Tartrate 25 mg PO BID 11/16/15 05/06/18 Mirtazapine 15 mg PO DAILY 11/16/15 05/06/18 Ranitidine HCl 300 mg PO DAILY 07/22/16 05/06/18 Clorazepate Dipotassium [Tranxene 7.5 mg PO PRN PRN 03/24/17 05/06/18 T-Tab] Methimazole [Tapazole] 2.5 mg PO DAILY 03/24/17 05/06/18 Montelukast Sodium [Singulair] 5 mg PO HS 03/24/17 05/06/18 Omeprazole 40 mg PO DAILY 06/09/17 05/06/18 hydroCHLOROthiazide [Hydrodiuril] 25 mg PO DAILY 05/06/18 05/06/18 Review of Systems - Physician Review All systems were reviewed & negative as marked: Yes - Review of Systems Constitutional: Fatigue Eyes: Vision Changes ENT: Normal Respiratory: Normal Cardiovascular: Normal Gastrointestinal: Normal Genitourinary Female: Normal Musculoskeletal: Normal Skin: Other Physical Exam Vital Signs Reviewed: Yes Temperature: Afebrile Blood Pressure: Normal Pulse: Regular Respiratory Rate: Normal Appearance: Positive for: Well-Appearing, Uncomfortable Mental Status: Positive for: Alert and Oriented X 3 - Systems Exam Head: Present: Atraumatic Pupils: Present: PERRL Extroacular Muscles: Present: EOMI Conjunctiva: Present: Normal Nose (External): Present: Atraumatic Nose (Internal): Present: Normal Inspection Neck: Present: Normal Range of Motion Respiratory/Chest: Present: Clear to Auscultation Cardiovascular: Present: Regular Rate and Rhythm Abdomen: Present: Normal Bowel Sounds Upper Extremity: Present: Normal Inspection Lower Extremity: Present: Normal Inspection Neurological: Present: GCS=15, CN II-XII Intact, Speech Normal, Motor Func Grossly Intact, Other (finger to nose test negative) Skin: Present: Warm, Dry, Normal Color Psychiatric: Present: Alert, Oriented x 3, Normal Insight, Normal Concentration Vital Signs Temp Pulse Resp BP Pulse Ox 05/08/18 20:41 98.1 F 78 19 110/68 99 05/08/18 17:51 79 17 105/70 98 05/08/18 16:52 88 18 101/61 98 05/08/18 14:44 139/78 05/08/18 13:49 98.1 F 85 18 96 Medical Decision Making ED Course and Treatment: Impression: 58 year old Female presents with pressure like left sided headache, left arm pain and numbness, and pressure behind bilateral lower extremities Assessment: Rule out stroke, facial nerve palsy, intracerebral hemorrhage, MD Plan: Ketorolac 30 mg IV Stat CBC CMP PT/INR PTT Troponin EKG: Normal sinus rhythm Head CT: no acute findings Head MRI/MRA: no evidence of acute intracranial hemorrhage or infarct 05/08/18 20:13 Patient does not have any findings on imaging. Patient seems to be feeling better after administration of the toradol and ativan before her procedure. Patient can be discharged home. 05/08/18 20:15 (Salomón Quinonez) Attending note: I spoke to Dr. Lozada and reviewed case. Patient to be discharged and will f/u with him tomorrow morning. Patient advised to take full dose aspirin daily. (Puneet Mead DO) - Lab Interpretations Lab Results: 05/08/18 14:57 05/08/18 14:57 Lab Results 05/08/18 14:57: Lactate Dehydrogenase 358, Total Creatine Kinase 56, Troponin I < 0.01 05/08/18 14:57: Sodium 142, Potassium 3.6, Chloride 104, Carbon Dioxide 27, Anion Gap 14, BUN 10, Creatinine 0.7, Est GFR ( Amer) > 60, Est GFR (Non- Af Amer) > 60, Random Glucose 92, Calcium 9.3, Total Bilirubin 0.5, AST 23, ALT 31, Alkaline Phosphatase 92, Total Protein 7.8, Albumin 4.5, Globulin 3.3, Albumin/Globulin Ratio 1.3 05/08/18 14:57: PT 11.6, INR 1.02, APTT 31.7 05/08/18 14:57: WBC 12.4 H, RBC 4.83, Hgb 14.4, Hct 42.2, MCV 87.4, MCH 29.8, MCHC 34.1, RDW 13.9, Plt Count 269, MPV 10.6, Gran % 59.0, Lymph % (Auto) 34.1, Anson % (Auto) 5.0, Eos % (Auto) 1.7, Baso % (Auto) 0.2, Gran # 7.29 H, Lymph # ( Auto) 4.2 H, Anson # (Auto) 0.6, Eos # (Auto) 0.2, Baso # (Auto) 0.03 - RAD Interpretation Radiology Orders: 05/08/18 14:18 HEAD W/O CONTRAST [CT] Stat 05/08/18 15:02 BRAIN WITHOUT CONTRAST [MRI] Stat 05/08/18 16:47 MRA HEAD WITHOUT CONTRAST [MRI] Stat - Medication Orders Current Medication Orders: Discontinued Medications Ketorolac Tromethamine (Toradol) 30 mg IVP STAT STA Stop: 05/08/18 15:55 Last Admin: 05/08/18 16:51 Dose: 30 mg MAR Pain Assessment Document 05/08/18 16:51 SF (Rec: 05/08/18 16:52 [id number] Pain Reassessment Is this a pain reassessment? Yes Sleep Is patient sleeping during reassessment? No Presence of Pain Presence of Pain Yes IVP Administration Document 05/08/18 16:51 SF (Rec: 05/08/18 16:52 [email or web address]) Charges for Administration # of IVP Administrations 1 Lorazepam (Ativan) 2 mg IVP ONCE ONE PRN Reason: Protocol Stop: 05/08/18 16:48 Last Admin: 05/08/18 16:51 Dose: 2 mg IVP Administration Document 05/08/18 16:51 SF (Rec: 05/08/18 16:51 [email or web address] Charges for Administration # of IVP Administrations 1 - PA / COURTESY DRIVER / Resident Statement / has reviewed & agrees with the documentation as recorded. / has examined the patient and agrees with the treatment plan. Disposition/Present on Arrival - Present on Arrival Any Indicators Present on Arrival: No History of DVT/PE: No History of Uncontrolled Diabetes: No Urinary Catheter: No History of Decub. Ulcer: No History Surgical Site Infection Following: None - Disposition Have Diagnosis and Disposition been Completed?: Yes Disposition Time: 21:00 - Disposition Diagnosis: Left facial numbness Disposition: HOME/ ROUTINE Condition: GOOD Discharge Instructions (ExitCare): Paresthesias (DC) Additional Instructions: CHANDLER GARCIA, thank you for letting us take care of you today. The emergency medical care you received today was directed at your acute symptoms. If you were prescribed any medication, please fill it and take as directed. It may take several days for your symptoms to resolve. Return to the Emergency Department if your symptoms worsen, do not improve, or if you have any other problems. Please contact your doctor or call one of the physicians/clinics you have been referred to that are listed on the Patient Visit Information form that is included in your discharge packet. Bring any paperwork you were given at discharge with you along with any medications you are taking to your follow up visit. Our treatment cannot replace ongoing medical care by a primary care provider outside of the emergency department. Thank you for allowing the [facility] team to be part of your care today. Start taking a full dose (325mg) aspirin daily. Follow up with Dr. Lozada tomorrow for re-evaluation and further management. Referrals: Shailesh Lozada MD [Primary Care Provider] - Follow up with primary Forms: edo (Cuban)
[2018-05-08 16:02] LABS: TROPONIN I < 0.01 ng/mL
--- NOTE | 2018-05-08 18:48 | MRI ---
Date of service: 05/08/2018 PROCEDURE: MRI BRAIN WITHOUT CONTRAST HISTORY: left-sided facial/extremity numbness COMPARISON: Comparison made with prior CT scan of the brain earlier same day. TECHNIQUE: Multiplanar, multisequence MR images of the brain were obtained without intravenous contrast enhancement. FINDINGS: HEMORRHAGE: No acute parenchymal, subarachnoid or extra-axial hemorrhage. No evidence of hemosiderin deposition is identified on gradient echo weighted sequence. DWI: No evidence of an acute or early subacute infarction seen on diffusion imaging. . BRAIN PARENCHYMA: No evidence of significant microvascular ischemic disease. No obvious parenchymal nor extra-axial mass or collection seen on this noncontrast study. Ventricular and sulcal size are within range of normal for this patient's stated age. VENTRICLES: No obstructive hydrocephalus. CRANIUM: Unremarkable. ORBITS: Orbits and contents appear unremarkable PARANASAL SINUSES/MASTOIDS: Clear VASCULAR SYSTEM: Visualized major vascular flow voids at skull base patent. OTHER FINDINGS: IMPRESSION: No evidence of acute intracranial hemorrhage or infarct.
--- NOTE | 2018-05-08 19:54 | CARD ---
APPROVED REPORT Date of service: 05/08/2018 EKG Measurement Heart [id number] <Conclusion> Normal sinus rhythm Low voltage QRS Incomplete right bundle branch block Cannot rule out Anterior infarct, age undetermined Abnormal ECG
[2018-05-08 20:42] VITALS: BP 110/68; PULSE 78; RESP 19; O2SAT 99
--- NOTE | 2018-05-09 09:58 | MRI ---
Date of service: 05/08/2018 PROCEDURE: Magnetic Resonance Angiography Brain HISTORY: left-sided facial and extremity numbness COMPARISON: None available. TECHNIQUE: 3D time of flight MR angiography of the intracranial arteries was performed. Rotating maximum intensity projection images were generated. FINDINGS: INTERNAL CAROTID ARTERIES: Normal flow related signal. The skull base, petrous, cavernous and supraclinoid segments are bilaterally widely patient. ANTERIOR CEREBRAL ARTERIES: Normal flow related signal. A1 and A2 segments are widely patent. Smaller distal branches unremarkable, as visualized. MIDDLE CEREBRAL ARTERIES: Normal flow related signal. M1 and M2 segments are widely patent. Perisylvian branches grossly symmetric. POSTERIOR CIRCULATION: Basilar Artery: Normal in caliber and widely patent. Distal Vertebral Arteries: Normal in caliber and widely patent. Posterior Cerebral Arteries: Normal in caliber and widely patent. Posterior Inferior Cerebellar Arteries: Normal in caliber and widely patent. ANEURYSM/ VASCULAR MALFORMATIONS: None. OTHER FINDINGS: None. IMPRESSION: No evidence of occlusion, definite significant stenosis or saccular aneurysm. A preliminary report was provided by [employer] services.
== END 2018-05-08 20:41 | disposition home or self-care (01) ==
LOC: ED 13:37
DX: R20.0 Anesthesia of skin (principal); F17.210 Nicotine dependence, cigarettes, uncomplicated; I10 Essential (primary) hypertension; E05.90 Thyrotoxicosis, unspecified without thyrotoxic crisis or storm; Z86.73 Personal history of transient ischemic attack (TIA), and cerebral infarction without residual deficits; J44.9 Chronic obstructive pulmonary disease, unspecified
CPT/HCPCS: 70450; 70544; 70551; 80053; 82550; 83615; 84484; 85025; 85610; 85730; 93005; 96374; 96375; 99285; J1885; J2060

== ENCOUNTER 2018-06-17 14:40 | Emergency (ER) | payer MEDICAID ==
[2018-06-17 14:41] VITALS: BMI 41.5
[2018-06-17] MEDS ORDERED: Alum-Mag Hydrox-Simethicone Susp (30 mL) PO STA (15:35)
[2018-06-17] MEDS ORDERED: Atrop/Hyosc/Scopal/PB Elixir (120 ml) PO STA (15:35)
--- NOTE | 2018-06-17 15:48 | ED PDOC ---
Arrival/HPI - General Chief Complaint: Abdominal Pain Time Seen by Provider: 06/17/18 15:05 Historian: Patient - History of Present Illness Narrative History of Present Illness (Text): 06/17/18 15:45 A 58 year old female, whose past medical history includes anxiety, hypertension , and irritable bowel syndrome, presents to the emergency department complaining of abdominal pain and diarrhea since the past 6 months. Patient reports pain has progressively gotten worse and has seen her PMD multiple times for the symptoms. Patient reports she has taken zantac, previcid, and hyoscyamine with not relief and is experiencing weakness and dehydration from a prescribed liquid diet prescribed from her PMD 2 days ago. Patient denies any fever, chills, chest pain, shortness of breath, vomiting, back pain, neck pain, headache, dizziness, or any other complaints. PMD: Time/Duration: > month (6 months) Symptom Course: Unchanged Activities at Onset: Light Context: Home Past Medical History - Provider Review Nursing Documentation Reviewed: Yes - Infectious Disease Hx of Infectious Diseases: None - Cardiac Hx Cardiac Disorders: Yes Hx Hypertension: Yes - Pulmonary Hx Chronic Obstructive Pulmonary Disease (COPD): Yes - Neurological Hx Neurological Disorder: Yes Hx Dizziness: Yes Hx Migraine: Yes Hx Transient Ischemic Attacks (TIA): Yes - HEENT Hx HEENT Disorder: Yes Hx Blind: No Hx Cataracts: No Hx Deafness: No Hx Difficulty Chewing: No Hx Epistaxis: No Hx Glaucoma: No Hx Macular Degeneration: No Other/Comment: Wear glasses - Renal Hx Renal Failure: No - Endocrine/Metabolic Hx Endocrine Disorders: Yes Hx Hyperthyroidism: Yes - Hematological/Oncological Hx Blood Disorders: No - Integumentary Hx Dermatological Disorder: Yes (VITILIGO) Other/Comment: Loss of pigmentation - Musculoskeletal/Rheumatological Hx Musculoskeletal Disorders: Yes Hx Arthritis: Yes - Gastrointestinal Hx Gastrointestinal Disorders: Yes Hx Gastroesophageal Reflux: Yes - Genitourinary/Gynecological Hx Genitourinary Disorders: Yes Hx Urinary Tract Infection: Yes - Psychiatric Hx Anxiety: Yes Hx Substance Use: No - Surgical History Hx Appendectomy: Yes Hx Cholecystectomy: Yes - Anesthesia Hx Anesthesia: Yes Hx Anesthesia Reactions: No Hx Malignant Hyperthermia: No - Suicidal Assessment Feels Threatened In Home Enviroment: No Family/Social History - Physician Review Nursing Documentation Reviewed: Yes Family/Social History: Unknown Family HX Smoking Status: Heavy Smoker > 10 Cigarettes Daily Hx Alcohol Use: No Hx Substance Use: No Allergies/Home Meds Allergies/Adverse Reactions: Allergies codeine Allergy (Intermediate, Verified 06/17/18 14:58) DIARRHEA SWEATS Penicillins Allergy (Mild, Verified 06/17/18 14:58) VOMITING DIARRHEA Home Medications: Home Meds Medication Instructions Recorded Confirmed Aspirin [Aspir 81] 81 mg PO DAILY 03/17/13 06/17/18 Metoprolol Tartrate 25 mg PO BID 11/16/15 06/17/18 Mirtazapine 15 mg PO DAILY 11/16/15 06/17/18 Ranitidine HCl 300 mg PO DAILY 07/22/16 06/17/18 Clorazepate Dipotassium [Tranxene 7.5 mg PO PRN PRN 03/24/17 06/17/18 T-Tab] Methimazole [Tapazole] 2.5 mg PO DAILY 03/24/17 06/17/18 Montelukast Sodium [Singulair] 5 mg PO HS 03/24/17 06/17/18 Omeprazole 40 mg PO DAILY 06/09/17 06/17/18 hydroCHLOROthiazide [Hydrodiuril] 25 mg PO DAILY 05/06/18 06/17/18 Hyoscyamine Sulfate [Symax] 1 tab PO TID 06/17/18 06/17/18 Review of Systems - Physician Review All systems were reviewed & negative as marked: Yes - Review of Systems Constitutional: absent: Fevers, Night Sweats Respiratory: absent: SOB Cardiovascular: absent: Chest Pain Gastrointestinal: Diarrhea, Nausea. absent: Vomiting Musculoskeletal: absent: Back Pain, Neck Pain Neurological: absent: Headache, Dizziness Physical Exam Vital Signs Reviewed: Yes Vital Signs Temp Pulse Resp BP Pulse Ox 06/17/18 19:24 98.7 F 84 18 135/85 100 06/17/18 15:00 98.9 F 77 16 127/78 95 Temperature: Afebrile Blood Pressure: Normal Pulse: Regular Respiratory Rate: Normal Appearance: Positive for: Well-Appearing, Non-Toxic, Comfortable Pain Distress: None Mental Status: Positive for: Alert and Oriented X 3 - Systems Exam Head: Present: Atraumatic, Normocephalic Pupils: Present: PERRL Extroacular Muscles: Present: EOMI Conjunctiva: Present: Normal Mouth: Present: Moist Mucous Membranes Neck: Present: Normal Range of Motion Respiratory/Chest: Present: Clear to Auscultation, Good Air Exchange. No: Respiratory Distress, Accessory Muscle Use Cardiovascular: Present: Regular Rate and Rhythm, Normal S1, S2. No: Murmurs Abdomen: Present: Tenderness (+tenderness to palpation of epigastric and right upper quadrant). No: Distention, Peritoneal Signs, Rebound, Guarding, McBurney' s Point Tender, Rovsing's Sign Present, Hernias, Feeding Tubes, Ostomy Tubes, Mass/Organomegaly, Scars Back: Present: Normal Inspection Upper Extremity: Present: Normal Inspection. No: Cyanosis, Edema Lower Extremity: Present: Normal Inspection. No: Edema Neurological: Present: GCS=15, CN II-XII Intact, Speech Normal Skin: Present: Warm, Dry, Normal Color. No: Rashes Psychiatric: Present: Alert, Oriented x 3, Normal Insight, Normal Concentration Medical Decision Making ED Course and Treatment: 06/17/18 15:50 Impression: A 58 year old female presenting to the emergency department complaining of abdominal pain and diarrhea. Plan: -- CT of Abdomen & Pelvis with contrast -- Labs -- CBC -- Maalox -- Elixir -- Pepcid -- Lidocaine -- Zofran -- Urine Culture -- Urinalysis -- Reassess and disposition Prior Visits: Notes and results from previous visits were reviewed. Progress Notes: 06/17/18 19:11 Upon reassessment, patient symptoms improved. Patient will be discharged and be given follow up instructions for PMD. - Lab Interpretations Lab Results: 06/17/18 16:15 06/17/18 17:02 Lab Results 06/17/18 18:06: Urine Color Light yellow, Urine Appearance Clear, Urine pH 6.5, Ur Specific Newman <= 1.005, Urine Protein Negative, Urine Glucose (UA) Negative, Urine Ketones Negative, Urine Blood Negative, Urine Nitrate Negative, Urine Bilirubin Negative, Urine Urobilinogen 0.2, Ur Leukocyte Esterase Small H , Urine RBC 0 - 2, Urine WBC 0 - 2, Ur Epithelial Cells 0 - 2, Urine Bacteria Few 06/17/18 17:02: Sodium 141, Potassium 3.2 L, Chloride 102, Carbon Dioxide 25, Anion Gap 17, BUN 10, Creatinine 0.8, Est GFR ( Amer) > 60, Est GFR (Non- Af Amer) > 60, Random Glucose 99, Calcium 9.9, Magnesium 1.8, Total Bilirubin 0.6, AST 31, ALT 27, Alkaline Phosphatase 107, Total Protein 8.5 H, Albumin 4.7 , Globulin 3.8, Albumin/Globulin Ratio 1.3, Lipase 76 06/17/18 16:15: WBC 11.0, RBC 4.93, Hgb 14.8, Hct 42.8, MCV 86.8, MCH 30.0, MCHC 34.6, RDW 13.7, Plt Count 207, MPV 11.9 H, Gran % 57.9, Lymph % (Auto) 34.2 , Dickenson % (Auto) 5.8, Eos % (Auto) 1.7, Baso % (Auto) 0.4, Gran # 6.37, Lymph # ( Auto) 3.8 H, Dickenson # (Auto) 0.6, Eos # (Auto) 0.2, Baso # (Auto) 0.04 - RAD Interpretation Radiology Orders: 06/17/18 15:34 ABD & PELVIS IV CONTRAST ONLY [CT] Stat - Medication Orders Current Medication Orders: Discontinued Medications Al Hydrox/Mg Hydrox/Simethicone (Maalox Plus 30 Ml) 30 ml PO STAT STA Stop: 06/17/18 15:36 Last Admin: 06/17/18 15:59 Dose: 30 ml Belladonna/Phenobarbital ( Elixir) 5 ml PO STAT STA Stop: 06/17/18 15:36 Last Admin: 06/17/18 16:00 Dose: 5 ml Famotidine (Pepcid) 20 mg IVP STAT STA Stop: 06/17/18 15:36 Last Admin: 06/17/18 15:59 Dose: 20 mg IVP Administration Document 06/17/18 15:59 KIARA (Rec: 06/17/18 16:00 LA [id number]) Charges for Administration # of IVP Administrations 1 Lidocaine HCl (Lidocaine 2% Viscous) 15 ml PO STAT STA Stop: 06/17/18 15:37 Last Admin: 06/17/18 15:59 Dose: 15 ml Ondansetron HCl (Zofran Inj) 4 mg IVP STAT STA Stop: 06/17/18 15:36 Last Admin: 06/17/18 15:59 Dose: 4 mg IVP Administration Document 06/17/18 15:59 LA (Rec: 06/17/18 15:59 LA [id number]) Charges for Administration # of IVP Administrations 1 - Scribe Statement The provider has reviewed the documentation as recorded by the Scribe Kindra Gabriel All medical record entries made by the Scribe were at my direction and personally dictated by me. I have reviewed the chart and agree that the record accurately reflects my personal performance of the history, physical exam, medical decision making, and the department course for this patient. I have also personally directed, reviewed, and agree with the discharge instructions and disposition. Disposition/Present on Arrival - Present on Arrival Any Indicators Present on Arrival: No History of DVT/PE: No History of Uncontrolled Diabetes: No Urinary Catheter: No History of Decub. Ulcer: No History Surgical Site Infection Following: None - Disposition Have Diagnosis and Disposition been Completed?: Yes Diagnosis: Diarrhea Disposition: HOME/ ROUTINE Disposition Time: 18:30 Condition: IMPROVED Discharge Instructions (ExitCare): Diarrhea in Adolescents and Adults Additional Instructions: CHANDLER GARCIA, thank you for letting us take care of you today. The emergency medical care you received today was directed at your acute symptoms. If you were prescribed any medication, please fill it and take as directed. It may take several days for your symptoms to resolve. Return to the Emergency Department if your symptoms worsen, do not improve, or if you have any other problems. Please contact your doctor or call one of the physicians/clinics you have been referred to that are listed on the Patient Visit Information form that is included in your discharge packet. Bring any paperwork you were given at discharge with you along with any medications you are taking to your follow up visit. Our treatment cannot replace ongoing medical care by a primary care provider outside of the emergency department. Thank you for allowing the [facility] team to be part of your care today. Follow up with your primary care doctor in 1-2 days for re-evaluation and further management. Referrals: Sylvester Lozada MD [Family Provider] - Follow up with primary Forms: Profyle (Nepali)
[2018-06-17 16:52] LABS: BASO # 0.04 K/mm3 (0.0-2.0); BASO % 0.4 % (0.0-3.0); EOS # 0.2 (0.0-0.7); EOS % 1.7 % (1.5-5.0); GRAN # 6.37 (1.4-6.5); GRAN % 57.9 % (50.0-68.0); HEMOGLOBIN 14.8 g/dL (12.0-16.0); LYMPH # 3.8 (1.2-3.4); LYMPH % 34.2 % (22.0-35.0); MEAN CELL VOLUME 86.8 fl (80.0-105.0); MEAN CORPUSCULAR HGB CONC 34.6 g/dl (31.0-37.0); MEAN PLATELET VOLUME 11.9 fl (7.0-11.0); MONO # 0.6 (0.1-0.6); MONO % 5.8 % (1.0-6.0); RBC 4.93 10^6/uL (3.5-6.1); RED CELL DISTRIBUTION WIDTH 13.7 % (11.5-14.5)
[2018-06-17 17:23] LABS: ALB/GLOB RATIO 1.3 (1.1-1.8); ALBUMIN 4.7 g/dL (3.0-4.8); ALT/SGPT 27 U/L (7-56); AST/SGOT 31 U/L (14-36); BLOOD UREA NITROGEN 10 mg/dL (7-21); CALCIUM 9.9 mg/dL (8.4-10.5); GFR AFRICAN-AMERICAN > 60; GFR NON-AFRICAN AMERICAN > 60; LIPASE 76 U/L (23-300)
[2018-06-17] MEDS ORDERED: Iohexol 350 MG/100 ML VIAL ONE (17:49)
--- NOTE | 2018-06-17 18:49 | CT ---
Date of service: 06/17/2018 PROCEDURE: CT Abdomen and Pelvis with contrast HISTORY: Upper abdominal pain. Patient also gives history of cholecystectomy and appendectomy on questionnaire form. COMPARISON: Comparison made with CT scan of the abdomen pelvis 03/17/2013. TECHNIQUE: Contiguous helical/ transaxial sections of the abdomen pelvis performed following intravenous injection of approximately 100 cc Omnipaque 350 contrast material. Additional 2D sagittal and coronal reformats generated. . Radiation dose: Total exam DLP = 1208. 20 mGy-cm. This CT exam was performed using one or more of the following dose reduction techniques: Automated exposure control, adjustment of the mA and/or kV according to patient size, and/or use of iterative reconstruction technique. FINDINGS: LOWER THORAX: Heart size within range of normal. No significant pericardial effusion. Mild atelectasis both posterior lower lung harris including the left lingular region and middle lobe. . LIVER: Liver is enlarged measuring over 20 cm in CC dimension. Mild fatty hepatic infiltration. No obvious hepatic mass collection or calcification. . . Portal and splenic veins are opacified. GALLBLADDER AND BILE DUCTS: Cholecystectomy PANCREAS: Pancreas appears atrophic and fatty replaced. No pancreatic masses collections or calcifications. SPLEEN: Spleen exhibits normal size and attenuation pattern without mass collection or calcification. Tiny splenule seen adjacent to the anterior cysts mid aspect of the main body of the spleen. ADRENALS: No adrenal lesions. KIDNEYS AND URETERS: Kidneys demonstrate symmetric nephrograms. No evidence of nephrolithiasis or hydronephrosis. VASCULATURE: Unremarkable. No aortic aneurysm. BOWEL: Evaluation of the bowel is limited due to the lack of oral contrast. Stomach is incompletely distended. Visualized loops of small bowel exhibit normal contour and caliber. No evidence of acute mechanical small bowel obstruction. Questionable mild asymmetric wall thickening of the distal sigmoid/ rectum which is likely due to tortuosity unopacified bowel some peristalsis however correlation with colonoscopy may be prudent for further evaluation. The the APPENDIX: Appendix is not seen on this exam consistent with this patient's history of prior appendectomy. PERITONEUM: Unremarkable. No free fluid. No free air. Small fat containing umbilical hernia. Small bilateral fat containing inguinal hernias. LYMPH NODES: Unremarkable. No enlarged lymph nodes. BLADDER: Urinary bladder incompletely distended. REPRODUCTIVE: Uterus appears grossly unremarkable BONES: Mild multilevel degenerative spondylosis of the lower thoracic and lumbar spine. OTHER FINDINGS: None. IMPRESSION: Hepatomegaly with fatty infiltration. Cholecystectomy. Appendectomy. Mild wall thickening of the distal sigmoid/rectum likely due to peristalsis and unopacified bowel however colonoscopy followup may be prudent to exclude intrinsic wall lesion. Mild bibasilar atelectasis. Small hiatal hernia.
[2018-06-17 18:50] LABS: PH,URINE 6.5 (4.7-8.0); URINE BILIRUBIN NEGATIVE (NEGATIVE); URINE BLOOD NEGATIVE (NEGATIVE); URINE GLUCOSE (UA) NEGATIVE (NEGATIVE); URINE LEUKOCYTE ESTERASE SMALL Leu/uL (NEGATIVE); URINE PROTEIN NEGATIVE mg/dL (<30 mg/dL); URINE UROBILINOGEN 0.2 E.U./dL (<1 E.U./dL)
[2018-06-17 18:53] LABS: URINE APPEARANCE CLEAR (CLEAR); URINE COLOR LIGHT YELLOW (YELLOW)
[2018-06-17 19:25] VITALS: BP 135/85; PULSE 84; RESP 18; TEMP 98.7; O2SAT 100
[2018-06-17 19:29] LABS: URINE BACTERIA FEW (NEG); URINE EPITHELIAL CELLS 0 - 2 /hpf (0-5); URINE RBC 0 - 2 /hpf (0-2); URINE WBC 0 - 2 /hpf (0-6)
== END 2018-06-17 19:26 | disposition home or self-care (01) ==
LOC: ED 14:40
DX: R19.7 Diarrhea, unspecified (principal); F17.210 Nicotine dependence, cigarettes, uncomplicated; I10 Essential (primary) hypertension
CPT/HCPCS: 74177; 80053; 81001; 83690; 83735; 85025; 87086; 96374; 96375; 99283; J2405; Q9967